=== PATIENT | female | born 1975 | race Two or more races ===

== ENCOUNTER 2024-02-04 20:17 | Inpatient (IN) | payer MEDICAID, SELFPAY ==
[2024-02-04 20:18] VITALS: BMI 30.2
--- NOTE | 2024-02-04 20:20 | EKG_ITS ---
[facility] Test Date: 2024-02-04 Pat Name: MARCELA VEGAS Department: Room: - Gender: Female [employer] Player: : 1975 Requested By: ED Temporary Provider Order Number: [id number] Reading MD: ED Temporary Provider Measurements Intervals [place] Rate: 70 P: 37 HI: 155 QRS: -18 QRSD: 91 T: 106 QT: 372 QTc: 403 Interpretive Statements SINUS RHYTHM LEFT VENTRICULAR HYPERTROPHY AND ST-T CHANGE [VOLTAGE CRITERIA PLUS ST/T ABNORMALITY] POSSIBLE ANTERIOR MYOCARDIAL INFARCTION , PROBABLY OLD [30 ms Q WAVE IN V3/V4, OR R < 0.2 mV IN V4] Compared to ECG 10/01/2023 00:19:31 Left ventricular hypertrophy now present ST (T wave) deviation now present Myocardial infarct finding still present /store/S0/[id number].pdf
[2024-02-04 20:29] VITALS: BP 163/92; PULSE 73; RESP 16; TEMP 37; O2SAT 98
--- NOTE | 2024-02-04 20:37 | XR_ITS ---
Examination: PA lateral chest 2 views Technique: Upright PA lateral chest 2 views Exam date and time: February 04, [id number] hrs. Comparison June 15, 2022 Indications: Chest pain today. Findings: Normal heart size Lungs are clear. The osseous structures are intact Impression: No active disease
--- NOTE | 2024-02-04 20:37 | PD.EDRME ---
Rapid Medical Screening Exam RME Arrival date/time: 02/04/24 20:17 48-year-old female presents emergency department complaining of left-sided chest pain that radiates to her neck and left arm and it started 2 hours ago. Chief Complaint: Chest Pain Time Seen by Provider: 02/04/24 20:33 Vital signs: Vital Signs Temperature 98.6 F 02/04/24 20:29 Pulse Rate 73 02/04/24 20:29 Respiratory Rate 16 02/04/24 20:29 Blood Pressure 163/92 H 02/04/24 20:29 Pulse Oximetry (%) 98 02/04/24 20:29 Oxygen Delivery Method Room Air 02/04/24 20:29 Vital signs reviewed by provider: Yes
[2024-02-04 21:45] LABS: Basophils % (Auto) 0 % (0-2.5); Eosinophils # (Auto) 0.1 Thou/mm3 (0.0-0.5); Eosinophils % (Auto) 2 % (0-10); Hematocrit 40.2 % (36.0-46.0); Immature Granulocytes % (Auto) 0 % (0-0); Immature Granulocytes Auto 0.02 Thou/mm3 (0.00-0.00); Lymphocytes # (Auto) 2.3 Thou/mm3 (1.0-4.8); Lymphocytes % (Auto) 32 % (10-50); Mean Corpuscular HGB Conc 32.3 g/dl (31.0-37.0); Mean Corpuscular Volume 87 fL (80-100); Monocytes # (Auto) 0.5 Thou/mm3 (0.0-0.8); Monocytes % (Auto) 7 % (0-12); Neutrophils # (Auto) 4.2 Thou/mm3 (1.8-7.7); Neutrophils % (Auto) 59 % (37-80); Nucleated Red Blood Cell % 0 /100 WBC (0); Platelet Count 235 Thou/mm3 (140-440); RDW Standard Deviation 40.4 fL (36.4-46.3); Red Blood Count 4.65 Miln/mm3 (4.00-5.20); White Blood Count 7.1 Thou/mm3 (3.6-11.0)
[2024-02-04 21:49] LABS: Collection Type, Urine Clean Catch
[2024-02-04 21:55] LABS: Partial Thromboplastin Time 25.2 Seconds (22.0-36.0); Prothrombin Time 10.9 Seconds (9.0-12.2)
[2024-02-04 21:57] LABS: Bilirubin,Urine Negative (Negative); Blood,Urine Negative (Negative); Clarity,Urine Clear (Clear/Hazy); Color,Urine Lt-Yellow (Lt Yel-Yel); Glucose, Urine Negative (Negative); Ketones,Urine Negative (Negative); Leukocyte Esterase,Urine Positive (Negative); Nitrite,Urine Negative (Negative); PH,Urine 6.5 (5.0-7.0); Protein,Urine Negative (Neg - Trace); RBC,Urine 5 /hpf (0-3); Specific Gravity,Urine 1.027 (1.001-1.035); Squamous Epithelial Cell,Urine 1 /hpf (0-5); Urobilinogen,Urine Negative mg/dL (0.0-1.0); WBC,Urine 6 /hpf (0-5)
[2024-02-04 21:57] LABS: B-Type Natriuretic Peptide < 20 pg/mL (0-100)
[2024-02-04 22:02] LABS: Amphetamine/Methamp Scrn,U Positive (Negative); Barbiturate Screen,Urine Negative (Negative); Benzodiazepines Screen,Urine Negative (Negative); Benzoylecgonine Screen, Ur Negative (Negative); Fentanyl Screen,Urine Negative (Negative); Opiate Screen,Urine Negative (Negative); THC Screen,Urine Negative (Negative)
--- NOTE | 2024-02-04 22:03 | PD.EDRME ---
Rapid Medical Screening Exam RME Arrival date/time: 02/04/24 20:17 02/04/24 20:17 48-year-old female presents emergency department complaining of left-sided chest pain that radiates to her neck and left arm and it started 2 hours ago. Chief Complaint: Chest Pain Time Seen by Provider: 02/04/24 20:33 Vital signs: Vital Signs Temperature 98.6 F 02/04/24 20:29 Pulse Rate 73 02/04/24 20:29 Respiratory Rate 16 02/04/24 20:29 Blood Pressure 163/92 H 02/04/24 20:29 Pulse Oximetry (%) 98 02/04/24 20:29 Oxygen Delivery Method Room Air 02/04/24 20:29 RME Narrative: 02/04/24 20:17 48-year-old female presents emergency department complaining of left-sided chest pain that radiates to her neck and left arm and it started 2 hours ago.
[2024-02-04 22:07] LABS: Anion Gap 7 (7-16); Blood Urea Nitrogen 11 mg/dL (9-23); Carbon Dioxide 27.8 mMol/L (20.0-31.0); Chloride 105 mMol/L (98-107); Creatinine (Component) 0.9 mg/dL (0.6-1.3); Potassium 4.5 mMol/L (3.4-5.1); Sodium 140 mMol/L (136-145)
[2024-02-04 22:08] LABS: Alanine Aminotransferase 11 U/L (10-49); Albumin, Serum 4.5 gm/dL (3.5-5.0); Albumin/Globulin Ratio 1.7 (1.2-2.2); Alkaline Phosphatase 130 U/L (46-116); Aspartate Amino Transferase 33 U/L (0-34); BUN/Creatinine Ratio 12 Ratio (12-20); Bilirubin,Total 0.3 mg/dL (0.3-1.2); Calcium 9.3 mg/dL (8.3-10.6); Calcium (Corrected) 9.3 mg/dL (8.5-10.1); Estimated Creatinine Clearance 68.9 mL/min (>60); Globulin 2.6 gm/dL (2.3-3.5); Glucose 103 mg/dL (74-106); Magnesium 2.3 mg/dL (1.6-2.6); Osmolality,Calculated 278 (275-295); Total Protein 7.1 gm/dL (5.7-8.2); eGFR > 60 See Note
[2024-02-04 22:09] LABS: Troponin I 1.002 ng/mL (0.0-0.045)
[2024-02-05] VITALS (12 sets, daily range): BP systolic 105–140; BP diastolic 66–96; PULSE 61–83; RESP 16–24; TEMP 35.9–36.9; O2SAT 94–100; BMI 29.7
--- NOTE | 2024-02-05 01:13 | PD.EDCHEST ---
ED Chest Pain RME/HPI General Chief Complaint: Chest Pain Stated Complaint: CHEST PAIN Time Seen by Provider: 02/04/24 20:33 Source: patient Arrival date/time: 02/04/24 20:17 Mode of arrival: ambulatory Limitations: no limitations RME / HPI RME / HPI narrative: 02/04/24 20:17 48-year-old female presents emergency department complaining of left-sided chest pain that radiates to her neck and left arm and it started [address] MOORE MAIN ED EVALUATION: 48-year-old female presents to the ED with c/o chest pain. She notes pain as sharp sensation in the midsternal radiating up into her jaw. Patient states she usually has reflux like sensation in her chest but notes this episode was different. It occurred at about 4PM. Patient states she started to develop shortness of breath and worsening hcest pain therefore she decided to come here to be further evaluation. Denies any similar symptoms in the past. She denies orthopnea, or any other medical complaints. Related Data Home Medications ?Medication ?Instructions ?Recorded ?Confirmed omeprazole 20 mg tablet,delayed 20 mg PO QDAY 11/29/18 08/15/20 release Previous Rx's ?Medication ?Instructions ?Recorded diphenhydramine HCl 25 mg tablet 50 mg (2 x 25 mg) PO Q6H PRN 08/15/20 (Benadryl Allergy) allergic reaction #30 tabs ibuprofen 800 mg tablet 800 mg PO TID PRN pain #30 tabs 06/01/22 ondansetron 4 mg disintegrating 4 mg PO Q8H PRN nausea and 06/15/22 tablet vomiting #15 tabs acetaminophen 500 mg tablet 1,000 mg (2 x 500 mg) PO Q6H PRN 10/01/23 (Tylenol Extra Strength) pain #60 tabs famotidine 40 mg tablet (Pepcid) 40 mg PO QDAY #30 tabs 10/01/23 ibuprofen 600 mg tablet 600 mg PO Q6H PRN pain #30 tabs 10/01/23 metoclopramide HCl 10 mg tablet 10 mg PO Q6H PRN nausea and 10/01/23 (Reglan) vomiting #15 tabs Allergies Allergy/AdvReac Type Severity Reaction Status Date / Time No Known Allergies Allergy Verified 02/04/24 20:19 Review of Systems Review of Systems Systems Reviewed: All systems reviewed, normal except as documented Past Medical History Past Medical History CARDIAC: Negative Congestive Heart Failure RESPIRATORY: Negative Chronic Obstructive Pulmonary Disease (COPD) GASTROINTESTINAL: Positive Gastrointestinal Disorders, Pancreatitis and Gastroesophageal Reflux Disease GENITOURINARY: Positive Genitourinary Disorders and Kidney Stones; Negative Renal Disease ENDOCRINE: Negative Diabetes Mellitus Type 1 or Diabetes Mellitus Type 2 PSYCHO/SOCIAL: Positive Recreational Drug Use Family History FAMILY HISTORY: Positive Family Cancer Social History SMOKING STATUS: Current every day smoker SUBSTANCE USE: does not use ED Exam Narrative Physical exam: GENERAL APPEARANCE: alert and oriented x 4, well-developed, well-nourished, no acute distress VITALS: All vitals were reviewed and the pulse ox is 100% on room air, which is normal according to my interpretation. HEENT: Normocephalic, atraumatic; pupils equal, round, reactive to light; EOMI; mucous membranes pink, moist; oropharynx clear NECK: Supple LUNGS: CTABL; no wheezes, no rales, no rhonchi HEART: Regular rate, regular rhythm; normal S1, S2; no murmurs ABDOMEN: non distended; normal BS; soft, no tenderness, no guarding, no rebound; no masses, no organomegaly, no hernia BACK: no CVA tenderness EXTREMITIES: atraumatic; no edema NEUROLOGIC: awake; alert and oriented x4; cranial nerves II-XII grossly intact; no focal sensory or motor deficits PSYCHIATRIC: appropriate mood and affect SKIN: warm, dry, normal color; no rashes General Limitations: Present no limitations Course Course Course Narrative: CXR is ordered for determining etiology of chest pain . Quality Measures none Orders Category Date Time Status EKG (ED ONLY) *Do not use* NOW Care 02/04/24 20:20 Completed EKG (ED ONLY) *Do not use* NOW Care 02/05/24 01:14 Completed EKG (ED Only) Stat Exams 02/04/24 20:20 Draft EKG (ED Only) Stat Exams 02/05/24 01:14 Ordered XR chest 2V Stat Exams 02/04/24 20:37 Completed B-Type Natriuretic Peptide Stat Lab 02/04/24 21:15 Completed CBC Stat Lab 02/04/24 21:15 Completed Comprehensive Metabolic Panel Stat Lab 02/04/24 21:15 Completed Drug Screen,Urine Stat Lab 02/04/24 21:35 Completed Magnesium Stat Lab 02/04/24 21:15 Completed PT [Prothrombin Time with INR] Stat Lab 02/05/24 01:58 Completed Partial Thromboplastin Time Stat Lab 02/04/24 21:15 Completed Partial Thromboplastin Time Stat Lab 02/05/24 07:45 Ordered Prothrombin Time with INR Stat Lab 02/04/24 21:15 Completed Troponin I Stat Lab 02/04/24 21:15 Completed Troponin I Stat Lab 02/05/24 00:36 Completed Urinalysis Stat Lab 02/04/24 21:35 Completed Aspirin Chew Med 02/05/24 01:17 Discontinued 324 mg PO X1 ONE Heparin Inj Med 02/05/24 01:18 Discontinued 4,000 unit IV X1 ONE Heparin/D5w 25K 250 ML Ivpb [Heparin in D5w Ivpb] Med 02/05/24 01:30 Active 25,000 unit in 250 ml IV 12 units/kg/hr Vital Signs Vital signs: Vital Signs Temperature 98.6 F 02/04/24 20:29 Pulse Rate 73 02/04/24 20:29 Respiratory Rate 16 02/04/24 20:29 Blood Pressure 163/92 H 02/04/24 20:29 Pulse Oximetry (%) 98 02/04/24 20:29 Oxygen Delivery Method Room Air 02/04/24 20:29 Chest Pain MDM Narrative MDM Narrative:: Scribe Attestation: IDanuta am scribing for and in the presence of Dr. Moore. Provider Notation: Although this document has been carefully reviewed, there may still be some phonetic and other typographical errors. These errors are purely grammatical due to imperfections in the software program and should not be construed in any way to compromise the substance of the patient's medical care during this visit. Patient data External records reviewed:: [facility] previous records Clinical information provided by:: patient Social determinants that could affect healthcare access:: substance use Patient has the following chronic illnesses:: gastritis/GERD, substance use disorder (methamphetamine and opioid) How is presenting disease/condition affected by chronic disease/condition?: uneffected by Evaluation data The following diagnostics were reviewed and interpreted by me:: lab results, radiology exam(s) and EKG tracing(s) Lab and/or radiology exams considered but not ordered:: n/a Interpretation Summary: I personally reviewed the radiology data and agree with the radiologist's interpretation. Examination: PA lateral chest 2 views Technique: Upright PA lateral chest 2 views Exam date and time: February 04, [id number] hrs. Comparison June 15, 2022 Indications: Chest pain today. Findings: Normal heart size Lungs are clear. The osseous structures are intact Impression: No active disease Dictated By: Chase Black MD Medications / Prescriptions Medications or Prescriptions considered but not ordered:: n/a Medication administrations:: Medication Administration History Acetaminophen (Acetaminophen 325 Mg Tablet) 650 mg PO Q6H PRN PRN Reason: PAIN SCALE 1-3 (mild Stop: 03/06/24 02:23 Aspirin (Aspirin Ec 81 Mg Tabec) 81 mg PO QDAY VIDA Stop: 03/06/24 08:59 Atorvastatin Calcium (Atorvastatin Calcium 10 Mg Tablet) 80 mg PO QDAY VIDA Stop: 03/06/24 08:59 Heparin Sodium/Dextrose (Heparin In D5w Ivpb) 25,000 unit in 250 mls @ 8.552 mls/hr IV .Q24H IVDA; Protocol Stop: 02/19/24 01:29 Last Admin: 02/05/24 01:41 Dose: 12 units/kg/hr, 8.552 mls/hr Documented By: YENI Co-signed By: PAULA Ondansetron HCl (Ondansetron Inj 2 Mg/Ml Inj 2 Ml) 4 mg IV Q6H PRN; Protocol PRN Reason: NAUSEA OR VOMITING Stop: 03/06/24 02:23 Sennosides (Senna Tablet) 1 tab PO QDAY PRN; Protocol PRN Reason: constipation Stop: 03/06/24 02:23 Discontinued Medications Aspirin (Aspirin 81 Mg Chew) 324 mg PO X1 ONE Stop: 02/05/24 01:18 Last Admin: 02/05/24 01:25 Dose: 324 mg Documented By: YENI Atorvastatin Calcium (Atorvastatin Calcium 10 Mg Tablet) 40 mg PO QDAY [facility] Stop: 03/06/24 08:59 Heparin Sodium (Porcine) (Heparin Sod Inj 5000 Unit/Ml Vial) 4,000 unit IV X1 ONE; Protocol Stop: 02/05/24 01:19 Last Admin: 02/05/24 01:26 Dose: 4,000 unit Documented By: YENI Co-signed By: PAULA as above, if any Consultations Consultation(s) initiated? (list below): Yes Consultation #1 (Physician, Specialty, Details): Hospitalist made aware of the patient?s HPI, PMHx, lab and/or radiology results. Treatment plan was discussed. Will admit for further evaluation and management. Accepts patient for admission. Time: 01:30 Diagnosis Chest Pain Differential Diagnosis: fracture of rib, atypical chest pain, st elevation myocardial infarction, costochondritis, chest pain and biliary colic Most likely diagnosis given after review of the tests above:: Non-ST elevation NV (NSTEMI) Admission Indicated Admission indicated?: indicated Admission Request Was there a request for admission?: Yes Admission Attestation Admission request attestation: Discussed case with [] from Hospitalist service regarding admission. Discussed patients ED course, exam findings, labs, and radiology results. The Hospitalist [agrees,declines] to accept the patient for admission. Disposition Plan Disposition Plan: Admit Critical Care Time Critical Care Time Critical Care Time: Yes Total Critical Care Time (min.): 45 Attestation: The high probability of sudden, clinically significant deterioration in the patient?s condition required the highest level of my preparedness to intervene urgently. The services I provided to this patient were to treat and/or prevent clinically significant deterioration. Services included the following: chart data review, reviewing nursing notes and/or old charts, documentation time, business solutions consultant collaboration regarding findings and treatment options, medication orders and management, direct patient care, vital sign assessments and ordering, interpreting and reviewing diagnostic studies and lab tests. Aggregate critical care time includes only time during which I was engaged in work directly related to the patient?s care, as described above, whether at bedside or elsewhere in the Emergency Department. It did not include time spent performing other reported procedures or the services of residents, students, nurses or physician assistants. Discharge Plan Plan Patient Disposition: Admit Acute Care w/in Hospital Patient condition on transfer: Stable Problem List Clinical Impression: Non-ST elevation NV (NSTEMI)
--- NOTE | 2024-02-05 01:14 | EKG_ITS ---
[facility] Test Date: 2024-02-05 Pat Name: MARCELA VEGAS Department: Room: - Gender: Female Rol[employer] Tender: MARILU : 1975 Requested By: Guillermina Sykes Order Number: [id number] Reading MD: Guillermina Sykes Measurements Intervals [place] Rate: 66 P: 35 SD: 161 QRS: -11 QRSD: 96 T: 101 QT: 405 QTc: 427 Interpretive Statements SINUS RHYTHM POSSIBLE ANTERIOR MYOCARDIAL INFARCTION , PROBABLY OLD Compared to ECG 02/04/2024 20:28:19 Left ventricular hypertrophy no longer present ST (T wave) deviation no longer present Myocardial infarct finding still present /store/S0/[id number]/ecg/[id number].pdf
[2024-02-05] MEDS: ASPIRIN 81 MG CHEW 324 MG PO (01:25)
[2024-02-05] MEDS: HEPARIN SOD INJ 5000 UNIT/ML VIAL 4000 UNIT IV (01:26)
--- NOTE | 2024-02-05 01:30 | PC.NURSE ---
PT TO THE ER WITH C/O LEFT SIDED CHEST PAIN THAT STARTED 2 HR PRIOR TO ARRIVAL TO THE ER. PT STATES SHE WAS BATHING HER GROUND CHILD AND HAD A SUDDEN ONSET OF PERSISTENT CHEST PAIN AND RAD TO LEFT ARM. PT DENIES ANY OTHER SYMPTOMS. PT PRESENTED ER WITH PAIN LEVEL 3/10 AND DESCRIBES STABBING. PT PLACE ON TRANSPORTATION ANALYST. 20GRFA STARTED. AWAITING NEW MD ORDERS AT THIS TIME.
[2024-02-05] MEDS: Heparin/D5w 25K 250 ML Ivpb 25,000 UNIT/250 ML BAG 8.552 UNIT IV (01:41)
[2024-02-05 02:22] LABS: INR 1.1 (0.9-1.3); Prothrombin Time 11.6 Seconds (9.0-12.2)
--- NOTE | 2024-02-05 02:26 | ECHO_ITS ---
Transthoracic Echo Report Ht (in): 61 Wt (lb): 157 Exam Location: Portable Status: Emergency Boiler Shop Supervisor: Cris Moore Indications: Procedure Performed: BP: 130 / 91 HR: 80 Technical Quality: Technically difficult study MEASUREMENTS (Male / Female) Normal Values 2D ECHO LV Diastolic Diameter PLAX 4.6 cm 4.2 - 5.9 / 3.9 - 5.3 cm LV Systolic Diameter PLAX 3.0 cm IVS Diastolic Thickness 0.9 cm 0.6 - 1.0 / 0.6 - 0.9 cm LVPW Diastolic Thickness 0.8 cm 0.6 - 1.0 / 0.6 - 0.9 cm LV Relative Wall Thickness 0.4 LVOT Diameter 1.9 cm LA Volume Index 35.4 cm?/m? 16 - 28 cm?/m? Ascending Aorta Diameter 3.0 cm M-MODE Aortic Root Diameter MM 2.4 cm LA Systolic Diameter MM 4.2 cm LA Ao Ratio MM 1.8 AV Cusp Separation MM 1.9 cm DOPPLER AV Peak Velocity 115.0 cm/s AV Peak Gradient 5.3 mmHg AV Mean Gradient 3.0 mmHg AV Velocity Time Integral 24.0 cm LVOT Peak Velocity 75.8 cm/s LVOT Peak Gradient 2.3 mmHg LVOT Velocity Time Integral 16.4 cm LVOT Cardiac Index 2088.1 cm?/min?m? AV Area Cont Eq vti 1.9 cm? AV Area Cont Eq pk 1.9 cm? MV Peak Velocity 84.6 cm/s MV Peak Gradient 2.9 mmHg MV Mean Velocity 49.4 cm/s MV Mean Gradient 1.0 mmHg MV Area PHT 3.7 cm? MR Peak Velocity 224.0 cm/s MR Peak Gradient 20.1 mmHg Mitral E Point Velocity 65.5 cm/s Mitral A Point Velocity 65.5 cm/s Mitral E to A Ratio 1.0 LV E' Lateral Velocity 9.1 cm/s Mitral E to LV E' Lateral Ratio 7.2 LV E' Septal Velocity 5.2 cm/s Mitral E to LV E' Septal Ratio 12.5 TR Peak Velocity 233.7 cm/s TR Peak Gradient 21.8 mmHg FINDINGS Left Ventricle Normal left ventricular size, wall thickness, systolic function with no obvious regional wall motion abnormalities. The ejection fraction is visually estimated at 55-60%. Right Ventricle The right ventricle is normal in size and systolic function. The estimated right ventricular systoli c pressure, 31mmHg.RAP 5. Left Atrium The left atrium is mildly dilated. Right Atrium The right atrium is normal by two-dimensional imaging, color flow and Doppler imaging with no struct ural abnormalities, no thrombus formation present. Atrial Septum The interatrial septum appears normal with no evidence of a shunt. Aorta The aorta is normal by two-dimensional, color flow and Doppler interrogation. Mitral Valve The mitral valve is normal by two-dimensional, color flow and Doppler interrogation. There is mild mitral valve regurgitation. Aortic Valve The aortic valve is trileaflet and normal by two-dimensional, color flow and Doppler interrogation. There is no significant aortic valve regurgitation. Tricuspid Valve The tricuspid valve is normal by two-dimensional, color flow and Doppler interrogation. There is mil d tricuspid valve regurgitation. Pulmonic Valve There is no significant pulmonic valve regurgitation. Vessels The pulmonary artery appears normal. The inferior vena cava pulmonary and hepatic veins appear janneth l. Pericardium The pericardium is normal by two-dimensional imaging. There is no significant pericardial effusion. CONCLUSIONS Indication: NSTEMI Normal LV size and function. Grade I diastolic dysfunction. Estimated EF 55-60% Normal RV size and function. Mild LA dilatation. Mild MR, TR. Leo Garvey (Electronically Signed) Final Date: 05 February 2024 23:51
--- NOTE | 2024-02-05 02:36 | PD.RESHP ---
Documentation for date of: 02/05/24 HPI History of Present Illness Chief complaint: Chest Pain History of present illness: 48-year-old female with past medical history of gastritis/GERD, substance use disorder (methamphetamine and opioid), nephrolithiasis, cholelithiasis presenting to the ED on 02/03 with chest pain which she describes as a sharp sensation in the middle of her chest which radiated up into her jaw. Patient states that she usually gets some reflux like sensation in her chest; however, the pain that she experienced this afternoon around 4 PM was different. Patient states that she was in the process of taking her grandchild to the bathroom when she started to develop shortness of breath along with sharp chest pain in the middle of her chest which radiated up to her jaw. Patient states that the sensation felt like sore throat but worsening progressively. Patient denies having any similar episodes in the past; however, she does state that she gets some palpitations and some numbness in her hands from time to time. Patient denies other concerning cardiac symptoms such as orthopnea, paroxysmal nocturnal dyspnea. Patient also apparently goes to [facility]; however, has not been in several months and she has not been diagnosed with hypertension or diabetes in the past. Medical history: As listed Surgical history: Denies any surgery at this time Allergies: NKDA Medications: Omeprazole for GERD/gastritis Family history: Patient's mother had a quadruple bypass in her 50s, patient's grandmother maternal side had 3 stents placed both family members have Social history: Patient is a caregiver, lives with her , Codey, and 1 daughter and 1 grandchild. Patient has [id number] history, uses meth (U-Tox positive currently), denies alcohol use ROS: All 12 systems assessed and the patient denies unless otherwise stated in HPI. In the ED, patient presented with blood pressure 163/92, heart rate 73, respiratory rate 16, afebrile satting 98 on room air. Pertinent lab findings included mildly elevated alkaline phosphatase 130, troponin was initially elevated at 1.002 and repeat troponin came back at 8.870, BNP less than 20, urinalysis with no signs of urinary tract infection, U tox positive for amphetamine. EKG was normal sinus rhythm with possible left axis deviation but no concerning ST changes noted and chest x-ray was negative for any acute disease process. Patient will be admitted for NSTEMI type I with elevated troponins; started on heparin drip and cardiology has been consulted. Exam Vital Signs Temp Pulse Resp BP Pulse Ox O2 Del Method 98.0 F 78 17 123/66 98 Room Air 02/05/24 01:18 02/05/24 01:18 02/05/24 01:18 02/05/24 01:18 02/05/24 01:18 02/05/24 01:18 Narrative Exam Physical Exam: GENERAL: Awake, tearful (wants to go home not to miss work/be with grandchildren), answering questions appropriately, appears older than stated age HEENT: NC/AT. Moist mucosa. PERRLA/EOMI. CARDIO: Heart RRR, no obvious murmurs, no JVD. PULM: No coughing or visible SOB. Lungs CTA B/L. GI: Abdomen soft, NT/ND, +BS. SKIN/MSK/EXT: No wounds/discoloration/rashes/edema/amputations. +Pedal pulses present B/L. NEURO: Oriented x3, Moves extremities x4, no focal neurological deficits noted. Results: Labs 02/05/24 05:19 02/04/24 21:15 Labs: Short CBC 02/04/24 Range/Units 21:15 WBC 7.1 (3.6-11.0) Thou/mm3 Hgb 13.0 (12.0-16.0) g/dL Hct 40.2 (36.0-46.0) % Plt Count 235 (140-440) Thou/mm3 BMP 02/04/24 21:15 Sodium 140 Potassium 4.5 Chloride 105 Carbon Dioxide 27.8 BUN 11 Creatinine 0.9 Glucose 103 Calcium 9.3 Cardiac Enzymes 02/04/24 02/05/24 Range/Units 21:15 00:36 Troponin I 1.002 H* 8.870 H* D (0.0-0.045) ng/mL Liver Function 02/04/24 Range/Units 21:15 Total Bilirubin 0.3 (0.3-1.2) mg/dL AST 33 (0-34) U/L ALT 11 (10-49) U/L Alkaline Phosphatase 130 H (46-116) U/L Albumin 4.5 (3.5-5.0) gm/dL Urine 02/04/24 Range/Units 21:35 Urine Color Lt-Yellow (Lt Yel-Yel) Urine Clarity Clear (Clear/Hazy) Urine pH 6.5 (5.0-7.0) Ur Specific [place] 1.027 (1.001-1.035) Urine Protein Negative (Neg - Trace) Urine Glucose (UA) Negative (Negative) Quality Measures Quality Measures none Medications Home Medications and Allergies Home Medications ?Medication ?Instructions ?Recorded ?Confirmed ?Type omeprazole 20 mg tablet,delayed 20 mg PO QDAY 11/29/18 08/15/20 History release Allergies Allergy/AdvReac Type Severity Reaction Status Date / Time No Known Allergies Allergy Verified 02/04/24 20:19 Visit Medications Acetaminophen (Acetaminophen 325 Mg Tablet) 650 mg PO Q6H PRN PRN Reason: PAIN SCALE 1-3 (mild Stop: 03/06/24 02:23 Aspirin (Aspirin Ec 81 Mg Tabec) 81 mg PO QDAY [facility] Stop: 03/06/24 08:59 Atorvastatin Calcium (Atorvastatin Calcium 10 Mg Tablet) 80 mg PO QDAY [facility] Stop: 03/06/24 08:59 Heparin Sodium/Dextrose (Heparin In D5w Ivpb) 25,000 unit in 250 mls @ 8.552 mls/hr IV .Q24H VIDA; Protocol Stop: 02/19/24 01:29 Last Admin: 02/05/24 01:41 Dose: 12 units/kg/hr, 8.552 mls/hr Ondansetron HCl (Ondansetron Inj 2 Mg/Ml Inj 2 Ml) 4 mg IV Q6H PRN; Protocol PRN Reason: NAUSEA OR VOMITING Stop: 03/06/24 02:23 Sennosides (Senna Tablet) 1 tab PO QDAY PRN; Protocol PRN Reason: constipation Stop: 03/06/24 02:23 Discontinued Medications Aspirin (Aspirin 81 Mg Chew) 324 mg PO X1 ONE Stop: 02/05/24 01:18 Last Admin: 02/05/24 01:25 Dose: 324 mg Atorvastatin Calcium (Atorvastatin Calcium 10 Mg Tablet) 40 mg PO QDAY [facility] Stop: 03/06/24 08:59 Heparin Sodium (Porcine) (Heparin Sod Inj 5000 Unit/Ml Vial) 4,000 unit IV X1 ONE; Protocol Stop: 02/05/24 01:19 Last Admin: 02/05/24 01:26 Dose: 4,000 unit Assessment & Plan Plan 48-year-old female with past medical history of gastritis/GERD, substance use disorder (methamphetamine and opioid), nephrolithiasis, cholelithiasis presenting with chest pain which she describes as a sharp sensation in the middle of her chest which radiated up into her jaw will be admitted for NSTEMI type I with elevated troponins; started on heparin drip and cardiology has been consulted. #NSTEMI type I #Elevated troponins #Acute coronary syndrome Patient presenting with typical chest pain symptoms; central chest pain radiating to the left and up to her jaw associated with shortness of breath Patient has significant family history of coronary artery disease; mother with quadruple bypass in her 50s, grandmother with 3 stents placed Patient is an active smoker, with [id number]-rfpu history Patient likely has undiagnosed hypertension; current blood pressure within normal limits Preliminary ASCVD score is showing 3.0% Risk of cardiovascular event (coronary or stroke or non-fatal [place] or stroke) in next 10 years. In the ED, EKG showed normal sinus rhythm with left axis deviation but no concerning ST changes Troponins initially elevated 1.002 => 8.070 Patient given aspirin loading dose in the ED Plan: Dr. Worthy, cardiology consulted appreciate recommendations Trending troponin q6h Patient started on heparin drip Aspirin 81 mg daily and atorvastatin 80 mg Echo ordered Follow-up on lipid panel, TSH, A1c Keep potassium greater than 4 and magnesium greater than 2 Oxygen as needed Consider starting beta-luci; however, patient's heart rate in the 70s and currently not complaining of active chest pain #Meth use disorder Patient actively uses methamphetamine; U-Tox positive Plan: Counseled patient on drug cessation Consider elementary school social worker #Gastritis/GERD Patient on home omeprazole 40 mg in the a.m. Plan: Will start patient on Protonix 40 mg per formulary Hospital Management: Lines: PIV Bowel: Senna Diet: Cardiac GI prophylaxis: Protonix as above DVT prophylaxis: On heparin drip Dispo: Telemetry; cardiology consulted for NSTEMI type II on heparin drip Code: Full Patient seen and assessed with attending Dr. Inman and senior resident Dr. Humble Daly, PGY-1 Attending Provider Attestation/Addendum 48-year-old female was seen and evaluated in ER bed #6. The patient presented with chest pain. She has elevated troponin. EKG shows sinus rhythm with possible anterior NC. Chest x-ray showed no CHF no effusion. The patient is alert and oriented. And I saw she is chest pain-free. She has stable vital signs. No arrhythmias recorded. The patient was started on heparin drip.
[2024-02-05 05:39] LABS: Basophils % (Auto) 1 % (0-2.5); Eosinophils # (Auto) 0.2 Thou/mm3 (0.0-0.5); Eosinophils % (Auto) 3 % (0-10); Hematocrit 37.5 % (36.0-46.0); Hemoglobin 12.1 g/dL (12.0-16.0); Immature Granulocytes % (Auto) 0 % (0-0); Immature Granulocytes Auto 0.01 Thou/mm3 (0.00-0.00); Lymphocytes # (Auto) 3.2 Thou/mm3 (1.0-4.8); Lymphocytes % (Auto) 40 % (10-50); Mean Corpuscular HGB Conc 32.3 g/dl (31.0-37.0); Mean Corpuscular Hemoglobin 27.9 pg (25.0-35.0); Mean Corpuscular Volume 86 fL (80-100); Monocytes # (Auto) 0.4 Thou/mm3 (0.0-0.8); Monocytes % (Auto) 6 % (0-12); Neutrophils # (Auto) 4.1 Thou/mm3 (1.8-7.7); Neutrophils % (Auto) 52 % (37-80); Nucleated Red Blood Cell % 0 /100 WBC (0); Platelet Count 214 Thou/mm3 (140-440); RDW Standard Deviation 39.9 fL (36.4-46.3); Red Blood Count 4.34 Miln/mm3 (4.00-5.20)
[2024-02-05 06:54] LABS: Glucose Estimated Average 97 mg/dL (80-131)
[2024-02-05 07:09] LABS: Alanine Aminotransferase 11 U/L (10-49); Albumin, Serum 4.1 gm/dL (3.5-5.0); Albumin/Globulin Ratio 1.8 (1.2-2.2); Alkaline Phosphatase 116 U/L (46-116); Anion Gap 7 (7-16); Aspartate Amino Transferase 67 U/L (0-34); BUN/Creatinine Ratio 17 Ratio (12-20); Bilirubin,Total 0.3 mg/dL (0.3-1.2); Blood Urea Nitrogen 12 mg/dL (9-23); Carbon Dioxide 27.1 mMol/L (20.0-31.0); Cardiac Risk Estimate 3.2 RATIO (3.7-5.6); Chloride 106 mMol/L (98-107); Cholesterol 177 mg/dL (132-200); Creatinine (Component) 0.7 mg/dL (0.6-1.3); Estimated Creatinine Clearance 87.8 mL/min (>60); Globulin 2.3 gm/dL (2.3-3.5); Glucose 97 mg/dL (74-106); HDL Cholesterol 56 mg/dL (40-60); LDL Cholesterol,Calculated 110 mg/dL (0-130); Magnesium 2.3 mg/dL (1.6-2.6); Osmolality,Calculated 279 (275-295); Phosphorous 3.4 mg/dL (2.4-5.1); Potassium 3.7 mMol/L (3.4-5.1); Sodium 140 mMol/L (136-145); Thyroid Stimulating Hormone 0.38 uIU/mL (0.55-4.78); Total Protein 6.4 gm/dL (5.7-8.2); Triglycerides 53 mg/dL (30-150); eGFR > 60 See Note
[2024-02-05 07:22] LABS: Troponin I 10.293 ng/mL (0.0-0.045)
[2024-02-05] MEDS: ATORVASTATIN CALCIUM 10 MG TABLET 80 MG PO (08:35)
[2024-02-05] MEDS: PANTOPRAZOLE 40 MG TABLET PO (08:36)
--- NOTE | 2024-02-05 09:35 | ESPR_ITS ---
<Statement entered by Jim Sullivan MD - 02/10/24 12:44> I reviewed above note and agree with findings and plans. I have also personally examined the patient with medicine team and went over assessment and plan with medical team including music industry internship and resident physician. <Statement entered by Terra Camara MD - 02/05/24 18:43> Patient was seen and examined at bedside. And agree on the assessment and plan of this patient. - Patient's plan and care discussed with my attending, Dr. Nate Camara MD Internal Medicine PGY-2 Documentation for date of: 02/05/24 Subjective Subjective Interval history: Pt examined at bedside today. Says she is experiencing some chest pain, rated 2/10, but it was initially at 10/10 upon coming in. Describes chest pain as pressure and something sitting on her chest. Denies diaprohresis, NV, SOB. Has never had these symptoms before. No other complaints at this time. Exam Vital Signs Temp Pulse Resp BP Pulse Ox O2 Del Method 96.7 F L 70 24 H 131/86 H 95 Room Air 02/05/24 08:00 02/05/24 08:00 02/05/24 08:00 02/05/24 08:00 02/05/24 08:00 02/05/24 08:00 Narrative Exam General: AAOx3, NAD, a bit sleepy HEENT: Moist mucous membranes, conjunctiva clear, EOMI, PERRLA, Cardiovascular: S1, S2, radial pulses +2 bilat, RRR, chest not TTP Pulmonary: CTAB bilat no cough, no wheezing GI: No tenderness to light or deep palpitation, no guarding, rigidity, rebound tenderness or distension Extremities: No presence of trace or pitting edema in lower extremities bilaterally, dorsalis pedis pulses +2 bilaterally Neuro: AAOx3, no focal motor or sensory deficits in the UE or LE bilat Psych: Good judgement, thought and behavior. Cooperative Objective Labs 02/05/24 05:19 02/05/24 05:19 Labs: Laboratory Results - last 24 hr 02/04/24 02/04/24 02/05/24 21:15 21:35 00:36 WBC 7.1 RBC 4.65 Hgb 13.0 Hct 40.2 MCV 87 MCH 28.0 MCHC 32.3 RDW Std Deviation 40.4 Plt Count 235 Neut % (Auto) 59 Lymph % (Auto) 32 [place] % (Auto) 7 Eos % (Auto) 2 Baso % (Auto) 0 Neut # (Auto) 4.2 Lymph # (Auto) 2.3 [place] # (Auto) 0.5 Eos # (Auto) 0.1 Baso # (Auto) 0.0 Immature Gran # (Auto) 0.02 H Absolute Nucleated RBC 0.00 Immature Gran % 0 Nucleated RBC % 0 PT 10.9 INR 1.0 APTT 25.2 Sodium 140 Potassium 4.5 Chloride 105 Carbon Dioxide 27.8 Anion Gap 7 BUN 11 Creatinine 0.9 Estim Creat Clear Calc 68.9 eGFR > 60 BUN/Creatinine Ratio [address] Glu mg/dL Hemoglobin A1c Calculated Osmolality 278 Calcium 9.3 Corrected Calcium 9.3 Phosphorus Magnesium 2.3 Total Bilirubin 0.3 AST 33 ALT 11 Alkaline Phosphatase 130 H Troponin I 1.002 H* 8.870 H* D B-Natriuretic Peptide < 20 Total Protein 7.1 Albumin 4.5 Globulin 2.6 Albumin/Globulin Ratio 1.7 Triglycerides Cholesterol LDL Cholesterol, Calc HDL Cholesterol Cholesterol/HDL Ratio TSH Ur Collection Type Clean Catch Urine Color Lt-Yellow Urine Clarity Clear Urine pH 6.5 Ur Specific [place] 1.027 Urine Protein Negative Urine Glucose (UA) Negative Urine Ketones Negative Urine Blood Negative Urine Nitrite Negative Urine Bilirubin Negative Urine Urobilinogen (Auto) Negative Ur Leukocyte Esterase Positive Urine RBC 5 H Urine WBC 6 H Ur Squamous Epith Cells 1 Urine Bacteria None Urine Opiates Screen Negative Urine Fentanyl Screen Negative Ur Barbiturates Screen Negative U Amphetamin/Meth Scrn Positive A U Benzodiazepines Scrn Negative U Cocaine Metab Screen Negative U Marijuana (THC) Screen Negative 02/05/24 02/05/24 01:58 05:19 WBC 8.0 RBC 4.34 Hgb 12.1 Hct 37.5 MCV 86 MCH 27.9 MCHC 32.3 RDW Std Deviation 39.9 Plt Count 214 Neut % (Auto) 52 Lymph % (Auto) 40 [place] % (Auto) 6 Eos % (Auto) 3 Baso % (Auto) 1 Neut # (Auto) 4.1 Lymph # (Auto) 3.2 [place] # (Auto) 0.4 Eos # (Auto) 0.2 Baso # (Auto) 0.0 Immature Gran # (Auto) 0.01 H Absolute Nucleated RBC 0.00 Immature Gran % 0 Nucleated RBC % 0 PT 11.6 INR 1.1 APTT Sodium 140 Potassium 3.7 D Chloride 106 Carbon Dioxide 27.1 Anion Gap 7 BUN 12 Creatinine 0.7 Estim Creat Clear Calc 87.8 eGFR > 60 BUN/Creatinine Ratio [address] Glu mg/dL 97 Hemoglobin A1c 5.0 Calculated Osmolality 279 Calcium 9.0 Corrected Calcium 9.0 Phosphorus 3.4 Magnesium 2.3 Total Bilirubin 0.3 AST 67 H ALT 11 Alkaline Phosphatase 116 Troponin I 10.293 H* D B-Natriuretic Peptide Total Protein 6.4 Albumin 4.1 Globulin 2.3 Albumin/Globulin Ratio 1.8 Triglycerides 53 Cholesterol 177 LDL Cholesterol, Calc 110 HDL Cholesterol 56 Cholesterol/HDL Ratio 3.2 L TSH 0.38 L Ur Collection Type Urine Color Urine Clarity Urine pH Ur Specific [place] Urine Protein Urine Glucose (UA) Urine Ketones Urine Blood Urine Nitrite Urine Bilirubin Urine Urobilinogen (Auto) Ur Leukocyte Esterase Urine RBC Urine WBC Ur Squamous Epith Cells Urine Bacteria Urine Opiates Screen Urine Fentanyl Screen Ur Barbiturates Screen U Amphetamin/Meth Scrn U Benzodiazepines Scrn U Cocaine Metab Screen U Marijuana (THC) Screen Quality Measures Quality Measures none Assessment & Plan Assessment Current Active Medications: Generic Name Dose Route Start Last Admin Trade Name Freq PRN Reason Stop Dose Admin Acetaminophen 650 mg 02/05/24 02:24 Acetaminophen 325 Mg Tablet PO 03/06/24 02:23 Q6H PRN PAIN SCALE 1-3 (mild Aspirin 81 mg 02/05/24 09:00 02/05/24 08:33 Aspirin Ec 81 Mg Tabec PO 03/06/24 08:59 Not Given QDAY VIDA Atorvastatin Calcium 80 mg 02/05/24 09:00 02/05/24 08:35 Atorvastatin Calcium 10 Mg Tablet PO 03/06/24 08:59 80 mg QDAY VIDA Administration Heparin Sodium/Dextrose 25,000 unit in 250 mls @ 8.552 mls/hr 02/05/24 01:30 02/05/24 01:41 Heparin In D5w Ivpb IV 02/19/24 01:29 12 units/kg/hr .Q24H VIDA 8.552 mls/hr Administration Protocol 12 UNITS/KG/HR Ondansetron HCl 4 mg 02/05/24 02:24 Ondansetron Inj 2 Mg/Ml Inj 2 Ml IV 03/06/24 02:23 Q6H PRN NAUSEA OR VOMITING Protocol Pantoprazole Sodium 40 mg 02/05/24 09:00 02/05/24 08:36 Pantoprazole 40 Mg Tablet PO 03/06/24 08:59 40 mg QDAY VIDA Administration Sennosides 1 tab 02/05/24 02:24 Senna Tablet PO 03/06/24 02:23 QDAY PRN constipation Protocol Plan Assessment: 48-year-old female with past medical history of gastritis/GERD, substance use disorder (methamphetamine and opioid), nephrolithiasis, cholelithiasis presenting with chest pain which she describes as a sharp sensation in the middle of her chest which radiated up into her jaw will be admitted for NSTEMI type I with elevated troponins; started on heparin drip and cardiology has been consulted. #NSTEMI type I #Elevated troponins Patient presenting with typical chest pain symptoms; central chest pain radiating to the left and up to her jaw associated with shortness of breath Patient has significant family history of coronary artery disease; mother with quadruple bypass in her 50s, grandmother with 3 stents placed Patient is an active smoker, with 28-vxtg-bpqb history Patient likely has undiagnosed hypertension; current blood pressure within normal limits Preliminary ASCVD score is showing 3.0% Risk of cardiovascular event (coronary or stroke or non-fatal [place] or stroke) in next 10 years. In the ED, EKG showed normal sinus rhythm with left axis deviation but no concerning ST changes Characteristic chest pain/pressure in addition to risk factors Troponins initially elevated 1.002 => 8.070 --> ~10 -----> 8 S/p 325 ASA, Lipitor 80 Pt denies taking meth or any drugs, but Utox shows meth Pt is not reporting severe chest pain at this time, and has improved with medicines and anticoagulation Cholesterol numbers unremarkable A1c ~5.0 Chest CTA shows no dissection, or aneurysm Pt will need eventual cardiac cath Plan: Dr. Worthy, cardiology consulted appreciate recommendations Trending troponin q6h Continue heparin drip Aspirin 81 mg daily and atorvastatin 80 mg Echo ordered Keep potassium greater than 4 and magnesium greater than 2 Oxygen as needed Continue Metoprolol 12.5 #Meth use disorder Patient actively uses methamphetamine; U-Tox positive Plan: Counseled patient on drug cessation Consider director of social media marketing #Low TSH DDx: Reactive vs subclinical TSH 0.38 T4 0.93 Could be reactive or subclinical Plan: -Will need to follow up outpatient #Gastritis/GERD Patient on home omeprazole 40 mg in the a.m. Plan: Will start patient on Protonix 40 mg per formulary #Health Maintenance Disposition: Telemetry, NSTEMI for Type I DVT prophylaxis: Heparin GI prophylaxis: Protonix Diet: Cardiac CODE STATUS: Full Patient seen and care discussed with my senior resident, Dr. Camara , and my attending physician, Dr. Nate Aly, PGY-1
--- NOTE | 2024-02-05 09:58 | XR_ITS ---
Examination: CTA chest with intravenous contrast 2-D reconstructions 3-D reconstructions, vascular Date and time of exam: February 05, 2024 1146 hours INDICATIONS:NSTEMI, onset chest pain today clinical diagnosis aortic dissection CTDI: vol (mGy) 19.6 DLP: (mGycm) 485 Technique: Multiple axial sections of the thorax have been obtained. 3 mm slice thickness, from below the hemidiaphragms to above the apices of the lungs. Mediastinal and lung density settings have been obtained. 2-D sagittal and coronal reconstructions. 3-D angiographic renderings, 3-D volume renderings, 3D post processing, vascular maximum intensity projections obtained. Contrast administered is 100 cc [id number]. Low dose protocols were performed. One or more of the following dose reduction techniques were used; automated exposure control, adjustment of the mA and/or KV according to patient size, use of iterative reconstruction technique. Findings: No thoracic aortic aneurysm dilatation or dissection No pulmonary artery emboli No paratracheal tracheobronchial or bronchopulmonary adenopathy No pneumonia or pulmonary edema or pleural disease No visualized liver or splenic lesion No gallstones No pancreatic mass Kidneys partially visualized no hydronephrosis Moderate thoracic spondylosis IMPRESSION: No thoracic aortic aneurysm dilatation or dissection Negative for pulmonary artery emboli No pneumonia, pulmonary edema or pleural disease
[2024-02-05] MEDS: METOPROLOL SUCCINATE XL 25 MG TABCR 12.5 MG PO (10:17)
[2024-02-05 10:43] LABS: Partial Thromboplastin Time 56.4 Seconds (22.0-36.0)
[2024-02-05 11:05] LABS: Free T4 (Free Thyroxine) 0.93 ng/dL (0.89-1.76)
--- NOTE | 2024-02-05 12:03 | PD.IMCONS ---
HPI Data of Consult Requesting Physician: Jim Sullivan MD Primary Care Provider: Piyush Her MD Consult Narrative History of present illness: This is a 48-year-old female with past medical history of gastritis/GERD, substance use disorder (methamphetamine and opioid), nephrolithiasis, cholelithiasis pt seen in the ER with chest pain EKG no acute changes ; troponin peaked at 10 No prior cardiac history cc:: cc: Jim Sullivan MD Meds Home Medications and Allergies Home Medications ?Medication ?Instructions ?Recorded ?Confirmed ?Type omeprazole 20 mg tablet,delayed 20 mg PO QDAY 11/29/18 08/15/20 History release Allergies Allergy/AdvReac Type Severity Reaction Status Date / Time No Known Allergies Allergy Verified 02/04/24 20:19 Exam Vital Signs Temp Pulse Resp BP Pulse Ox O2 Del Method 96.7 F L 80 24 H 130/91 H 95 Room Air 02/05/24 08:00 02/05/24 10:17 02/05/24 08:00 02/05/24 10:17 02/05/24 08:00 02/05/24 08:00 Routine HEENT Exam Head: Present normocephalic and atraumatic Eye: Present EOMI and PERRL ENT: Present mucous membranes moist Routine Neck Exam Neck: Present supple and trachea midline Routine Respiratory Exam Respiratory: Present chest non-tender, lungs clear, normal breath sounds and no resp distress Routine Cardiovascular Exam Cardiovascular: Present RRR Routine Abdominal Exam Abdominal: Present soft and normoactive bowel sounds Routine Extremities Exam Extremities: Present full ROM Routine Skin Exam Skin: Present intact, dry and warm Routine Neurological Exam Neurological: Present alert, oriented X3 and CN II-XII intact Routine Psychiatric Exam Psychiatric: Present normal affect and normal thought process Results Labs 02/05/24 05:19 02/05/24 05:19 Labs: Short CBC 02/04/24 02/05/24 Range/Units 21:15 05:19 WBC 7.1 8.0 (3.6-11.0) Thou/mm3 Hgb 13.0 12.1 (12.0-16.0) g/dL Hct 40.2 37.5 (36.0-46.0) % Plt Count 235 214 (140-440) Thou/mm3 BMP 02/04/24 02/05/24 21:15 05:19 Sodium 140 140 Potassium 4.5 3.7 D Chloride 105 106 Carbon Dioxide 27.8 27.1 BUN 11 12 Creatinine 0.9 0.7 Glucose 103 97 Calcium 9.3 9.0 Cardiac Enzymes 02/04/24 02/05/24 02/05/24 Range/Units 21:15 00:36 05:19 Troponin I 1.002 H* 8.870 H* D 10.293 H* D (0.0-0.045) ng/mL Liver Function 02/04/24 02/05/24 Range/Units 21:15 05:19 Total Bilirubin 0.3 0.3 (0.3-1.2) mg/dL AST 33 67 H (0-34) U/L ALT 11 11 (10-49) U/L Alkaline Phosphatase 130 H 116 (46-116) U/L Albumin 4.5 4.1 (3.5-5.0) gm/dL Urine 02/04/24 Range/Units 21:35 Urine Color Lt-Yellow (Lt Yel-Yel) Urine Clarity Clear (Clear/Hazy) Urine pH 6.5 (5.0-7.0) Ur Specific [place] 1.027 (1.001-1.035) Urine Protein Negative (Neg - Trace) Urine Glucose (UA) Negative (Negative) Assessment and Plan Assessment and plan (1) Non-ST elevation DC (NSTEMI): Status: Acute (2) GERD (gastroesophageal reflux disease): Status: Acute Additional Assessment & Plan Additional Plan: agree with current treatment recommend echo will need heart cath
--- NOTE | 2024-02-05 12:26 | PC.SS ---
SS met with patient regarding her d/c plan. Pt is alert/oriented. Pt was admitted for Chest Pain. Pt confirmed demographic and contact information is correct on facesheet. Pt resides with dad and kids. Pt ambulates independently without assistance or DME. Pt is ok with all ADLs. Patient?s pharmacy of choice is [facility] on [address]. Pt named her dtr, Yasmin Beatty medical decision maker if she is unable. Patient?s choice is to return home upon d/c. Pt does not have an advance directive, SS offered, and pt declined. Pt states she is diabetic, has glucometer, and test strips at home. Pt states she is not on dialysis. Pt states she last followed up with PCP about 1 year ago. D/C plan: Return home Next of Kin: Yasmin Asif dtr, phone# [phone] PCP: Dr. Ciro Jackson at [facility] Address: Correct on facesheet
--- NOTE | 2024-02-05 13:25 | CHAP ---
09:30 AM Visited by spiritual care volunteer Provided prayer for Patient.
[2024-02-05 18:04] LABS: Partial Thromboplastin Time 50.4 Seconds (22.0-36.0)
[2024-02-06] VITALS (8 sets, daily range): BP systolic 98–126; BP diastolic 69–82; PULSE 54–90; RESP 15–23; TEMP 36.3–36.6; O2SAT 96–98
[2024-02-06 00:13] LABS: Partial Thromboplastin Time 48.1 Seconds (22.0-36.0)
[2024-02-06 00:22] LABS: Troponin I 6.189 ng/mL (0.0-0.045)
[2024-02-06] MEDS: HEPARIN SOD INJ 5000 UNIT/ML VIAL 2000 UNIT IV (00:50)
[2024-02-06] MEDS: Heparin/D5w 25K 250 ML Ivpb 25,000 UNIT/250 ML BAG 9.978 UNIT IV ×2 (00:51→05:59)
[2024-02-06] MEDS: ACETAMINOPHEN 325 MG TABLET 650 MG PO (01:49)
[2024-02-06] MEDS: CALCIUM CARBONATE 600 MG TABLET PO (02:19)
[2024-02-06 07:50] LABS: Basophils % (Auto) 0 % (0-2.5); Eosinophils # (Auto) 0.2 Thou/mm3 (0.0-0.5); Eosinophils % (Auto) 3 % (0-10); Hematocrit 40.6 % (36.0-46.0); Immature Granulocytes % (Auto) 0 % (0-0); Immature Granulocytes Auto 0.01 Thou/mm3 (0.00-0.00); Lymphocytes # (Auto) 2.9 Thou/mm3 (1.0-4.8); Lymphocytes % (Auto) 48 % (10-50); Mean Corpuscular Hemoglobin 27.9 pg (25.0-35.0); Mean Corpuscular Volume 87 fL (80-100); Monocytes # (Auto) 0.3 Thou/mm3 (0.0-0.8); Monocytes % (Auto) 6 % (0-12); Neutrophils # (Auto) 2.6 Thou/mm3 (1.8-7.7); Neutrophils % (Auto) 43 % (37-80); Nucleated Red Blood Cell % 0 /100 WBC (0); Platelet Count 224 Thou/mm3 (140-440); RDW Standard Deviation 41.4 fL (36.4-46.3); Red Blood Count 4.66 Miln/mm3 (4.00-5.20)
[2024-02-06] MEDS: ASPIRIN EC 81 MG TABEC PO (08:03)
[2024-02-06] MEDS: PANTOPRAZOLE 40 MG TABLET PO (08:03)
[2024-02-06] MEDS: ATORVASTATIN CALCIUM 10 MG TABLET 80 MG PO (08:04)
[2024-02-06 08:20] LABS: Alanine Aminotransferase 35 U/L (10-49); Albumin/Globulin Ratio 1.7 (1.2-2.2); Alkaline Phosphatase 125 U/L (46-116); Anion Gap 5 (7-16); Aspartate Amino Transferase 70 U/L (0-34); BUN/Creatinine Ratio 16 Ratio (12-20); Bilirubin,Total 0.4 mg/dL (0.3-1.2); Blood Urea Nitrogen 11 mg/dL (9-23); Calcium 9.1 mg/dL (8.3-10.6); Calcium (Corrected) 9.1 mg/dL (8.5-10.1); Chloride 106 mMol/L (98-107); Creatinine (Component) 0.7 mg/dL (0.6-1.3); Estimated Creatinine Clearance 88.9 mL/min (>60); Globulin 2.4 gm/dL (2.3-3.5); Glucose 97 mg/dL (74-106); Osmolality,Calculated 278 (275-295); Sodium 140 mMol/L (136-145); Total Protein 6.4 gm/dL (5.7-8.2); eGFR > 60 See Note
[2024-02-06 08:45] LABS: INR 1.1 (0.9-1.3); Partial Thromboplastin Time 76.2 Seconds (22.0-36.0); Prothrombin Time 11.5 Seconds (9.0-12.2)
--- NOTE | 2024-02-06 09:08 | PC.SS ---
Follow up note: Cardio recommendations pending. Pt will return home upon dc.
--- NOTE | 2024-02-06 10:30 | PC.SS ---
Patient's tox screen was positive for meth use. SS received referral for positive screening for safety needs. SS met with pt who states she does not use meth often and last time she used meth was the other day for fun. SS offered pt community resources for drug programs and pt declined. Pt states she will return home with her family (life partner and kids).
--- NOTE | 2024-02-06 13:33 | ESPR_ITS ---
<Statement entered by Terra Camara MD - 02/06/24 16:34> Patient was seen and examined at bedside. She denied any chest pain. Overnight the patient heart rate was in the 60s and dropped to the 50s. Blood pressure also was soft 93/55 for that reason metoprolol was held. Today we contacted the automatic casting machine operator Dr. Worthy and he recommended to do catheterization of coronary arteries on Sunday. Today patient still on heparin drip, hemoglobin and platelets within normal limits. No signs of bleeding. PTT 79 and heparin is being adjusted by pharmacy. Action ICU score is 9.3% chance of complications require ICU admission. Today also patient was complaining of heartburn she was given sucralfate tablet x 1. - Patient's plan and care discussed with my attending, Dr. Salima Camara MD Internal Medicine PGY-2 Documentation for date of: 02/06/24 Subjective Subjective Interval history: Patient examined at bedside today. Acute overnight events include some bradycardia mid 50s, metoprolol was held. Patient was also asymptomatic bradycardia. Patient reports she is doing well, rates her chest pain 2 out of 10, has significantly improved, has not had a bowel movement. No other complaints has not had any shortness of breath or vomiting. Exam Vital Signs Temp Pulse Resp BP Pulse Ox O2 Del Method 97.6 F 64 18 98/69 97 Room Air 02/06/24 11:56 02/06/24 11:56 02/06/24 11:56 02/06/24 11:56 02/06/24 11:56 02/06/24 11:56 Narrative Exam General: AAOx3, NAD, a bit sleepy HEENT: Moist mucous membranes, conjunctiva clear, EOMI, PERRLA, Cardiovascular: S1, S2, radial pulses +2 bilat, RRR, chest not TTP Pulmonary: CTAB bilat no cough, no wheezing GI: No tenderness to light or deep palpitation, no guarding, rigidity, rebound tenderness or distension Extremities: No presence of trace or pitting edema in lower extremities bilaterally, dorsalis pedis pulses +2 bilaterally Neuro: AAOx3, no focal motor or sensory deficits in the UE or LE bilat Psych: Good judgement, thought and behavior. Cooperative Objective Labs 02/07/24 05:50 02/07/24 05:50 Labs: Laboratory Results - last 24 hr 02/05/24 02/05/24 02/06/24 17:26 23:45 07:20 WBC 6.0 RBC 4.66 Hgb 13.0 Hct 40.6 MCV 87 MCH 27.9 MCHC 32.0 RDW Std Deviation 41.4 Plt Count 224 Neut % (Auto) 43 Lymph % (Auto) 48 [place] % (Auto) 6 Eos % (Auto) 3 Baso % (Auto) 0 Neut # (Auto) 2.6 Lymph # (Auto) 2.9 [place] # (Auto) 0.3 Eos # (Auto) 0.2 Baso # (Auto) 0.0 Immature Gran # (Auto) 0.01 H Absolute Nucleated RBC 0.00 Immature Gran % 0 Nucleated RBC % 0 PT 11.5 INR 1.1 APTT 50.4 H 48.1 H 76.2 H D Sodium 140 Potassium 4.0 Chloride 106 Carbon Dioxide 29.0 Anion Gap 5 L BUN 11 Creatinine 0.7 Estim Creat Clear Calc 88.9 eGFR > 60 BUN/Creatinine Ratio 16 Glucose 97 Calculated Osmolality 278 Calcium 9.1 Corrected Calcium 9.1 Total Bilirubin 0.4 AST 70 H ALT 35 Alkaline Phosphatase 125 H Troponin I 6.189 H* D Total Protein 6.4 Albumin 4.0 Globulin 2.4 Albumin/Globulin Ratio 1.7 Quality Measures Quality Measures none Assessment & Plan Assessment Current Active Medications: Generic Name Dose Route Start Last Admin Trade Name Freq PRN Reason Stop Dose Admin Acetaminophen 650 mg 02/05/24 02:24 02/06/24 01:49 Acetaminophen 325 Mg Tablet PO 03/06/24 02:23 650 mg Q6H PRN Administration PAIN SCALE 1-3 (mild Aspirin 81 mg 02/05/24 09:00 02/06/24 08:03 Aspirin Ec 81 Mg Tabec PO 03/06/24 08:59 81 mg QDAY VIDA Administration Atorvastatin Calcium 80 mg 02/07/24 09:00 Atorvastatin Calcium 20 Mg Tablet PO 03/06/24 08:59 QDAY VIDA Heparin Sodium/Dextrose 25,000 unit in 250 mls @ 8.552 mls/hr 02/05/24 01:30 02/06/24 05:59 Heparin In D5w Ivpb IV 02/19/24 01:29 14 units/kg/hr .Q24H VIDA 9.978 mls/hr Administration Protocol 12 UNITS/KG/HR Metoprolol Succinate 12.5 mg 02/05/24 10:15 02/06/24 08:00 Metoprolol Succinate Xl 25 Mg Tabcr PO 03/06/24 10:14 Not Given QDAY VIDA Ondansetron HCl 4 mg 02/05/24 02:24 Ondansetron Inj 2 Mg/Ml Inj 2 Ml IV 03/06/24 02:23 Q6H PRN NAUSEA OR VOMITING Protocol Pantoprazole Sodium 40 mg 02/05/24 09:00 02/06/24 08:03 Pantoprazole 40 Mg Tablet PO 03/06/24 08:59 40 mg QDAY VIDA Administration Sennosides 1 tab 02/05/24 02:24 Senna Tablet PO 03/06/24 02:23 QDAY PRN constipation Protocol Plan Assessment: 48-year-old female with past medical history of gastritis/GERD, substance use disorder (methamphetamine and opioid), nephrolithiasis, cholelithiasis presenting with chest pain which she describes as a sharp sensation in the middle of her chest which radiated up into her jaw will be admitted for NSTEMI type I with elevated troponins; started on heparin drip and cardiology has been consulted. #NSTEMI type I #Elevated troponins, improved #Asymptomatic bradycardia Patient presenting with typical chest pain symptoms; central chest pain radiating to the left and up to her jaw associated with shortness of breath Patient has significant family history of coronary artery disease; mother with quadruple bypass in her 50s, grandmother with 3 stents placed Patient is an active smoker, with [id number] history Patient likely has undiagnosed hypertension; current blood pressure within normal limits Preliminary ASCVD score is showing 3.0% Risk of cardiovascular event (coronary or stroke or non-fatal [place] or stroke) in next 10 years. In the ED, EKG showed normal sinus rhythm with left axis deviation but no concerning ST changes Characteristic chest pain/pressure in addition to risk factors Troponins 1.002 => 8.070 --> ~10 -----> 8 --> 6, will not check moving forward Pt denies taking meth or any drugs, but Utox shows meth Pt is not reporting severe chest pain at this time, and has improved with medicines and anticoagulation Cholesterol numbers unremarkable A1c ~5.0 Chest CTA shows no dissection, or aneurysm Patient to get CT angiogram with Dr. Worthy on Sunday, spoke with him Patient had bradycardia, was asymptomatic, will skip metoprolol for now Echo: Normal LV size and function. Grade I diastolic dysfunction. Estimated EF 55-60% NSTEMI likely related to drug history Plan: Dr. Worthy, cardiology consulted appreciate recommendations Continue heparin drip with protocol, CT angiogram on Sunday Aspirin 81 mg daily and atorvastatin 80 mg Keep potassium greater than 4 and magnesium greater than 2 Oxygen as needed Held metoprolol in setting of bradycardia #Meth use disorder Patient actively uses methamphetamine; U-Tox positive Plan: Counseled patient on drug cessation Consider director social welfare #Low TSH DDx: Reactive vs subclinical TSH 0.38 T4 0.93 Could be reactive or subclinical Plan: -Will need to follow up outpatient #Gastritis/GERD Patient on home omeprazole 40 mg in the a.m. Plan: ?Symptomatic Protonix 40 mg per formulary #Health Maintenance Disposition: Telemetry, NSTEMI for Type I DVT prophylaxis: Heparin GI prophylaxis: Protonix Diet: Cardiac CODE STATUS: Full Patient seen and care discussed with my senior resident, Dr. Camara , and my attending physician, Dr. Salima Aly, PGY-1 Attending Provider Attestation/Addendum I have discussed and was present for the essential components of the history, physical examination, diagnosis, and treatment plan with the resident. I agree with the patient's care as documented by the resident and amended herein by me. Dimitri Borrego DO. Patient seen and evaluated this AM. In short patient is a 48-year-old female with a significant past medical history of GERD, methamphetamine and opioid abuse, renal stones, cholelithiasis who initially presented with chest pain, subsequently admitted for NSTEMI, likely type I No acute events overnight, vital signs stable, patient afebrile, labs largely unremarkable, patient denies any chest pain, palpitations, diaphoresis, nausea, vomiting or diarrhea. Cardiology consulted, cath scheduled for Sunday, 02/07 patient presently on aspirin 81 mg daily, atorvastatin 80 mg daily, heparin drip, metoprolol XL 12.5 mg daily and Protonix 40 mg daily. Will continue to monitor closely. Although this document has been carefully reviewed, there may still be some phonetic and other typographical errors. These errors are purely grammatical due to imperfections in the software program and should not be construed in any way to compromise the substance of the patient's medical care during this visit.
[2024-02-07] VITALS (8 sets, daily range): BP systolic 96–124; BP diastolic 59–78; PULSE 66–84; RESP 14–26; TEMP 35.9–36.6; O2SAT 96–100; BMI 29.6
[2024-02-07 06:22] LABS: Basophils % (Auto) 0 % (0-2.5); Eosinophils # (Auto) 0.2 Thou/mm3 (0.0-0.5); Eosinophils % (Auto) 2 % (0-10); Hemoglobin 14.1 g/dL (12.0-16.0); Immature Granulocytes % (Auto) 0 % (0-0); Immature Granulocytes Auto 0.03 Thou/mm3 (0.00-0.00); Lymphocytes # (Auto) 3.1 Thou/mm3 (1.0-4.8); Lymphocytes % (Auto) 41 % (10-50); Mean Corpuscular Hemoglobin 28.1 pg (25.0-35.0); Mean Corpuscular Volume 88 fL (80-100); Monocytes # (Auto) 0.4 Thou/mm3 (0.0-0.8); Monocytes % (Auto) 6 % (0-12); Neutrophils # (Auto) 3.9 Thou/mm3 (1.8-7.7); Neutrophils % (Auto) 51 % (37-80); Nucleated Red Blood Cell % 0 /100 WBC (0); Platelet Count 227 Thou/mm3 (140-440); RDW Standard Deviation 41.1 fL (36.4-46.3); Red Blood Count 5.01 Miln/mm3 (4.00-5.20); White Blood Count 7.7 Thou/mm3 (3.6-11.0)
[2024-02-07 06:51] LABS: Alanine Aminotransferase 49 U/L (10-49); Albumin, Serum 4.4 gm/dL (3.5-5.0); Albumin/Globulin Ratio 1.8 (1.2-2.2); Alkaline Phosphatase 144 U/L (46-116); Anion Gap 6 (7-16); Aspartate Amino Transferase 69 U/L (0-34); BUN/Creatinine Ratio 18 Ratio (12-20); Bilirubin,Total 0.2 mg/dL (0.3-1.2); Blood Urea Nitrogen 14 mg/dL (9-23); Calcium 9.8 mg/dL (8.3-10.6); Calcium (Corrected) 9.8 mg/dL (8.5-10.1); Chloride 104 mMol/L (98-107); Creatinine (Component) 0.8 mg/dL (0.6-1.3); Estimated Creatinine Clearance 76.8 mL/min (>60); Globulin 2.5 gm/dL (2.3-3.5); Glucose 97 mg/dL (74-106); Osmolality,Calculated 278 (275-295); Sodium 139 mMol/L (136-145); Total Protein 6.9 gm/dL (5.7-8.2); eGFR > 60 See Note
[2024-02-07] MEDS: Heparin/D5w 25K 250 ML Ivpb 25,000 UNIT/250 ML BAG 9.978 UNIT IV (07:04)
[2024-02-07] MEDS: ATORVASTATIN CALCIUM 20 MG TABLET 80 MG PO (08:18)
[2024-02-07] MEDS: PANTOPRAZOLE 40 MG TABLET PO (08:19)
[2024-02-07] MEDS: ASPIRIN EC 81 MG TABEC PO (08:19)
[2024-02-07] MEDS: METOPROLOL SUCCINATE XL 25 MG TABCR 12.5 MG PO (08:19)
--- NOTE | 2024-02-07 08:25 | PC.NURSE ---
PTT result pending,called lab ,talked to Artem,stated it will be ready in 20 minutes,having problem with machine.
[2024-02-07 08:29] LABS: Partial Thromboplastin Time 56.8 Seconds (22.0-36.0)
--- NOTE | 2024-02-07 14:22 | ESPR_ITS ---
<Statement entered by Terra Camara MD - 02/07/24 16:30> Patient was seen and examined at bedside. She denied any chest pain or shortness of breath or chest pressure. With uptrending troponin as it peaked at 10. Cardiology going to do the cardiac cath tomorrow patient will be n.p.o. after midnight we will keep the heparin drip, serum creatinine with normal limits. Patient's plan and care discussed with my attending, Dr. Salima Camara MD Internal Medicine PGY-2 Documentation for date of: 02/07/24 Subjective Subjective Interval history: Pt examined at bedside today. No acute overnight events. Has no complaints, wondering when she is going to get CT angiogram done. Exam Vital Signs Temp Pulse Resp BP Pulse Ox O2 Del Method 97.8 F 67 14 124/69 99 Room Air 02/07/24 12:00 02/07/24 12:00 02/07/24 12:00 02/07/24 12:00 02/07/24 12:00 02/07/24 12:00 Narrative Exam General: AAOx3, NAD, a bit sleepy HEENT: Moist mucous membranes, conjunctiva clear, EOMI, PERRLA, Cardiovascular: S1, S2, radial pulses +2 bilat, RRR, chest not TTP Pulmonary: CTAB bilat no cough, no wheezing GI: No tenderness to light or deep palpitation, no guarding, rigidity, rebound tenderness or distension Extremities: No presence of trace or pitting edema in lower extremities bilaterally, dorsalis pedis pulses +2 bilaterally Neuro: AAOx3, no focal motor or sensory deficits in the UE or LE bilat Psych: Good judgement, thought and behavior. Cooperative Objective Labs 02/07/24 05:50 02/07/24 05:50 Labs: Laboratory Results - last 24 hr 02/07/24 02/07/24 05:50 06:11 WBC 7.7 RBC 5.01 Hgb 14.1 Hct 44.0 MCV 88 MCH 28.1 MCHC 32.0 RDW Std Deviation 41.1 Plt Count 227 Neut % (Auto) 51 Lymph % (Auto) 41 [place] % (Auto) 6 Eos % (Auto) 2 Baso % (Auto) 0 Neut # (Auto) 3.9 Lymph # (Auto) 3.1 [place] # (Auto) 0.4 Eos # (Auto) 0.2 Baso # (Auto) 0.0 Immature Gran # (Auto) 0.03 H Absolute Nucleated RBC 0.00 Immature Gran % 0 Nucleated RBC % 0 APTT 56.8 H D Sodium 139 Potassium 4.0 Chloride 104 Carbon Dioxide 29.0 Anion Gap 6 L BUN 14 Creatinine 0.8 Estim Creat Clear Calc 76.8 eGFR > 60 BUN/Creatinine Ratio 18 Glucose 97 Calculated Osmolality 278 Calcium 9.8 Corrected Calcium 9.8 Total Bilirubin 0.2 L AST 69 H ALT 49 Alkaline Phosphatase 144 H Total Protein 6.9 Albumin 4.4 Globulin 2.5 Albumin/Globulin Ratio 1.8 Quality Measures Quality Measures none Assessment & Plan Assessment Current Active Medications: Generic Name Dose Route Start Last Admin Trade Name Freq PRN Reason Stop Dose Admin Acetaminophen 650 mg 02/05/24 02:24 02/06/24 01:49 Acetaminophen 325 Mg Tablet PO 03/06/24 02:23 650 mg Q6H PRN Administration PAIN SCALE 1-3 (mild Aspirin 81 mg 02/05/24 09:00 02/07/24 08:19 Aspirin Ec 81 Mg Tabec PO 03/06/24 08:59 81 mg QDAY VIDA Administration Atorvastatin Calcium 80 mg 02/07/24 09:00 02/07/24 08:18 Atorvastatin Calcium 20 Mg Tablet PO 03/06/24 08:59 80 mg QDAY VIDA Administration Heparin Sodium/Dextrose 25,000 unit in 250 mls @ 8.552 mls/hr 02/05/24 01:30 02/07/24 07:04 Heparin In D5w Ivpb IV 02/19/24 01:29 14 units/kg/hr .Q24H VIDA 9.978 mls/hr Administration Protocol 12 UNITS/KG/HR Metoprolol Succinate 12.5 mg 02/05/24 10:15 02/07/24 08:19 Metoprolol Succinate Xl 25 Mg Tabcr PO 03/06/24 10:14 12.5 mg QDAY VIDA Administration Ondansetron HCl 4 mg 02/05/24 02:24 Ondansetron Inj 2 Mg/Ml Inj 2 Ml IV 03/06/24 02:23 Q6H PRN NAUSEA OR VOMITING Protocol Pantoprazole Sodium 40 mg 02/05/24 09:00 02/07/24 08:19 Pantoprazole 40 Mg Tablet PO 03/06/24 08:59 40 mg QDAY VIDA Administration Sennosides 1 tab 02/05/24 02:24 Senna Tablet PO 03/06/24 02:23 QDAY PRN constipation Protocol Plan Assessment: 48-year-old female with past medical history of gastritis/GERD, substance use disorder (methamphetamine and opioid), nephrolithiasis, cholelithiasis presenting with chest pain which she describes as a sharp sensation in the middle of her chest which radiated up into her jaw will be admitted for NSTEMI type I with elevated troponins; started on heparin drip and cardiology has been consulted. #NSTEMI type I #Elevated troponins, improved #Asymptomatic bradycardia Patient presenting with typical chest pain symptoms; central chest pain radiating to the left and up to her jaw associated with shortness of breath Patient has significant family history of coronary artery disease; mother with quadruple bypass in her 50s, grandmother with 3 stents placed Patient is an active smoker, with [id number] history Patient likely has undiagnosed hypertension; current blood pressure within normal limits Preliminary ASCVD score is showing 3.0% Risk of cardiovascular event (coronary or stroke or non-fatal [place] or stroke) in next 10 years. In the ED, EKG showed normal sinus rhythm with left axis deviation but no concerning ST changes Characteristic chest pain/pressure in addition to risk factors Troponins 1.002 => 8.070 --> ~10 -----> 8 --> 6, will not check moving forward Pt denies taking meth or any drugs, but Utox shows meth Pt is not reporting severe chest pain at this time, and has improved with medicines and anticoagulation Cholesterol numbers unremarkable A1c ~5.0 Chest CTA shows no dissection, or aneurysm Patient to get cardiac cath with Dr. Worthy on Sunday, spoke with him Patient had bradycardia, was asymptomatic, will skip metoprolol for now Echo: Normal LV size and function. Grade I diastolic dysfunction. Estimated EF 55-60% NSTEMI likely related to drug history Plan: Dr. Worthy, cardiology consulted appreciate recommendations Continue heparin drip with protocol, cath on Sunday Trending PTT NPO at midnight Aspirin 81 mg daily and atorvastatin 80 mg Keep potassium greater than 4 and magnesium greater than 2 Oxygen as needed Held metoprolol in setting of bradycardia #Meth use disorder Patient actively uses methamphetamine; U-Tox positive Plan: Counseled patient on drug cessation Consider sexual assault social worker #Low TSH DDx: Reactive vs subclinical TSH 0.38 T4 0.93 Could be reactive or subclinical Plan: -Will need to follow up outpatient #Gastritis/GERD Patient on home omeprazole 40 mg in the a.m. Plan: ?Symptomatic Protonix 40 mg per formulary #Health Maintenance Disposition: Telemetry, NSTEMI for Type I DVT prophylaxis: Heparin GI prophylaxis: Protonix Diet: Cardiac CODE STATUS: Full Patient seen and care discussed with my senior resident, Dr. Camara , and my attending physician, Dr. Salima Aly, PGY-1 Attending Provider Attestation/Addendum I have discussed and was present for the essential components of the history, physical examination, diagnosis, and treatment plan with the resident. I agree with the patient's care as documented by the resident and amended herein by me. Dimitri Borrego DO. Patient seen and evaluated this AM. In short patient is a 48-year-old female with a significant past medical history of GERD, methamphetamine and opioid abuse, renal stones, cholelithiasis who initially presented with chest pain, subsequently admitted for NSTEMI, likely type I No acute events overnight, no significant change since previous day, vital signs stable, patient afebrile overnight, patient has no subjective complaints. Cath scheduled for tomorrow. Although this document has been carefully reviewed, there may still be some phonetic and other typographical errors. These errors are purely grammatical due to imperfections in the software program and should not be construed in any way to compromise the substance of the patient's medical care during this visit.
[2024-02-08] VITALS (13 sets, daily range): BP systolic 107–128; BP diastolic 66–91; PULSE 62–92; RESP 16–21; TEMP 36–36.7; O2SAT 97–100; BMI 30.2
[2024-02-08 05:50] LABS: Basophils % (Auto) 0 % (0-2.5); Eosinophils # (Auto) 0.2 Thou/mm3 (0.0-0.5); Eosinophils % (Auto) 2 % (0-10); Hematocrit 42.3 % (36.0-46.0); Hemoglobin 13.3 g/dL (12.0-16.0); Immature Granulocytes % (Auto) 0 % (0-0); Immature Granulocytes Auto 0.02 Thou/mm3 (0.00-0.00); Lymphocytes % (Auto) 37 % (10-50); Mean Corpuscular HGB Conc 31.4 g/dl (31.0-37.0); Mean Corpuscular Hemoglobin 27.3 pg (25.0-35.0); Mean Corpuscular Volume 87 fL (80-100); Monocytes # (Auto) 0.5 Thou/mm3 (0.0-0.8); Monocytes % (Auto) 7 % (0-12); Neutrophils # (Auto) 4.4 Thou/mm3 (1.8-7.7); Neutrophils % (Auto) 54 % (37-80); Nucleated Red Blood Cell % 0 /100 WBC (0); Platelet Count 169 Thou/mm3 (140-440); RDW Standard Deviation 40.5 fL (36.4-46.3); Red Blood Count 4.87 Miln/mm3 (4.00-5.20); White Blood Count 8.1 Thou/mm3 (3.6-11.0)
[2024-02-08 06:10] LABS: Partial Thromboplastin Time 59.1 Seconds (22.0-36.0)
[2024-02-08 06:11] LABS: Alanine Aminotransferase 106 U/L (10-49); Albumin, Serum 4.1 gm/dL (3.5-5.0); Albumin/Globulin Ratio 1.7 (1.2-2.2); Alkaline Phosphatase 145 U/L (46-116); Anion Gap 7 (7-16); Aspartate Amino Transferase 130 U/L (0-34); BUN/Creatinine Ratio 19 Ratio (12-20); Bilirubin,Total 0.3 mg/dL (0.3-1.2); Blood Urea Nitrogen 17 mg/dL (9-23); Calcium 9.3 mg/dL (8.3-10.6); Calcium (Corrected) 9.3 mg/dL (8.5-10.1); Carbon Dioxide 28.6 mMol/L (20.0-31.0); Chloride 104 mMol/L (98-107); Creatinine (Component) 0.9 mg/dL (0.6-1.3); Estimated Creatinine Clearance 68.9 mL/min (>60); Globulin 2.4 gm/dL (2.3-3.5); Glucose 101 mg/dL (74-106); Osmolality,Calculated 280 (275-295); Potassium 4.2 mMol/L (3.4-5.1); Sodium 140 mMol/L (136-145); Total Protein 6.5 gm/dL (5.7-8.2); eGFR > 60 See Note
--- NOTE | 2024-02-08 10:31 | PC.SS ---
Follow up note: laboratory machinist today. Pt is possible d/c home.
--- NOTE | 2024-02-08 11:00 | CHAP ---
Patient was visited by the Spiritual Care Volunteer who prayed for them. (Volunteer was in the hospital from C. 10:00-11:00)
--- NOTE | 2024-02-08 12:36 | PC.NURSE ---
Paused heparin drip at 11:15 patient going to cathlab
--- NOTE | 2024-02-08 13:32 | PD.CARDCATH ---
Cardiac Cath Procedure Procedure Narrative Date of the procedure 02/08/2024 Title of the procedure 1. Left heart catheterization 2. Left coronary angiogram 3. Right coronary angiogram 4. Left ventriculogram 5. Conscious sedation 6. Radiographic interpretation supervision 7. Ultrasound guidance for Right radial access Indication for the procedure This is a 48-year-old female with hypertension hyperlipidemia patient was admitted with chest pain and ruled in for non-ST elevation OR Peak troponin was 10 Cardiac catheter and cholangiogram recommended Procedure This is done in the cardiac lab under continuous electrocardiographic monitoring Intermittent blood pressure monitoring right radial arterial access obtained using modified Seldinger technique 6 [place] radial sheath was placed under ultrasound guidence TIG catheter was used for selective injection of the Left coronary artery TIG cather was used for selective injection of the Right coroanry artery TIG cather was used for LV gram Findings Hemodynamics Left ventricular systolic function is 50% End-diastolic pressure was 16 mmHg Gradient across the aortic valve is 0 mm gradient Coronary anatomy Right Dominance Left main coronary artery is Normal Left anterior descending artery is Normal Diagonal vessel is Minor luminal irregularities Left circumflex artery is Normal Obtuse marginal vessel is Normal Right coronary artery is Normal Posterior descending artery is Minor luminal irregularities Conclusion No significant coronary lesion Recommendation Continue medical management
--- NOTE | 2024-02-08 13:50 | ESPR_ITS ---
<Statement entered by Terra Camara MD - 02/08/24 15:13> Patient was seen and examined at bedside. Patient was undergone coronary catheterization and it was negative for any clot or blockage. Heparin drip was discontinued by Dr Worthy. Possible discharge tomorrow after we monitor her kidney functions. - Patient's plan and care discussed with my attending, Dr. Salima Camara MD Internal Medicine PGY-2 Documentation for date of: 02/08/24 Subjective Subjective Interval history: Pt examined at bedside today. No acute overnight events. Is doing well, wondering when she will get her cath today. No other complaints at this time. Denies chest pain and SOB Exam Vital Signs Temp Pulse Resp BP Pulse Ox O2 Del Method 97.9 F 69 20 128/83 100 Room Air 02/08/24 11:46 02/08/24 11:46 02/08/24 11:46 02/08/24 11:46 02/08/24 11:46 02/08/24 11:46 Narrative Exam General: AAOx3, NAD HEENT: Moist mucous membranes, conjunctiva clear, EOMI, PERRLA, Cardiovascular: S1, S2, radial pulses +2 bilat, RRR, chest not TTP Pulmonary: CTAB bilat no cough, no wheezing GI: No tenderness to light or deep palpitation, no guarding, rigidity, rebound tenderness or distension Extremities: No presence of trace or pitting edema in lower extremities bilaterally, dorsalis pedis pulses +2 bilaterally Neuro: AAOx3, no focal motor or sensory deficits in the UE or LE bilat Psych: Good judgement, thought and behavior. Cooperative Objective Labs 02/08/24 05:07 02/08/24 05:07 Labs: Laboratory Results - last 24 hr 02/08/24 05:07 WBC 8.1 RBC 4.87 Hgb 13.3 Hct 42.3 MCV 87 MCH 27.3 MCHC 31.4 RDW Std Deviation 40.5 Plt Count 169 D Neut % (Auto) 54 Lymph % (Auto) 37 [place] % (Auto) 7 Eos % (Auto) 2 Baso % (Auto) 0 Neut # (Auto) 4.4 Lymph # (Auto) 3.0 [place] # (Auto) 0.5 Eos # (Auto) 0.2 Baso # (Auto) 0.0 Immature Gran # (Auto) 0.02 H Absolute Nucleated RBC 0.00 Immature Gran % 0 Nucleated RBC % 0 APTT 59.1 H Sodium 140 Potassium 4.2 Chloride 104 Carbon Dioxide 28.6 Anion Gap 7 BUN 17 Creatinine 0.9 Estim Creat Clear Calc 68.9 eGFR > 60 BUN/Creatinine Ratio 19 Glucose 101 Calculated Osmolality 280 Calcium 9.3 Corrected Calcium 9.3 Total Bilirubin 0.3 AST 130 H ALT 106 H Alkaline Phosphatase 145 H Total Protein 6.5 Albumin 4.1 Globulin 2.4 Albumin/Globulin Ratio 1.7 Quality Measures Quality Measures none Assessment & Plan Assessment Current Active Medications: Generic Name Dose Route Start Last Admin Trade Name Freq PRN Reason Stop Dose Admin Acetaminophen 650 mg 02/05/24 02:24 02/06/24 01:49 Acetaminophen 325 Mg Tablet PO 03/06/24 02:23 650 mg Q6H PRN Administration PAIN SCALE 1-3 (mild Aspirin 81 mg 02/05/24 09:00 02/08/24 09:54 Aspirin Ec 81 Mg Tabec PO 03/06/24 08:59 Not Given QDAY VIDA Atorvastatin Calcium 40 mg 02/08/24 11:15 Atorvastatin Calcium 20 Mg Tablet PO 03/09/24 11:14 QDAY VIDA Heparin Sodium/Dextrose 25,000 unit in 250 mls @ 8.552 mls/hr 02/05/24 01:30 02/08/24 11:07 Heparin In D5w Ivpb IV 02/19/24 01:29 Infused .Q24H VIDA Titration Protocol 12 UNITS/KG/HR Metoprolol Succinate 12.5 mg 02/05/24 10:15 02/08/24 09:54 Metoprolol Succinate Xl 25 Mg Tabcr PO 03/06/24 10:14 Not Given QDAY VIDA Ondansetron HCl 4 mg 02/05/24 02:24 Ondansetron Inj 2 Mg/Ml Inj 2 Ml IV 03/06/24 02:23 Q6H PRN NAUSEA OR VOMITING Protocol Pantoprazole Sodium 40 mg 02/05/24 09:00 02/08/24 09:54 Pantoprazole 40 Mg Tablet PO 03/06/24 08:59 Not Given QDAY [facility] Sennosides 1 tab 02/05/24 02:24 Senna Tablet PO 03/06/24 02:23 QDAY PRN constipation Protocol Plan Assessment: 48-year-old female with past medical history of gastritis/GERD, substance use disorder (methamphetamine and opioid), nephrolithiasis, cholelithiasis presenting with chest pain which she describes as a sharp sensation in the middle of her chest which radiated up into her jaw will be admitted for NSTEMI type I with elevated troponins. #NSTEMI type I #Elevated troponins, improved #Asymptomatic bradycardia Patient presenting with typical chest pain symptoms; central chest pain radiating to the left and up to her jaw associated with shortness of breath Patient has significant family history of coronary artery disease; mother with quadruple bypass in her 50s, grandmother with 3 stents placed Patient is an active smoker, with [id number] history Patient likely has undiagnosed hypertension; current blood pressure within normal limits Preliminary ASCVD score is showing 3.0% Risk of cardiovascular event (coronary or stroke or non-fatal [place] or stroke) in next 10 years. In the ED, EKG showed normal sinus rhythm with left axis deviation but no concerning ST changes Characteristic chest pain/pressure in addition to risk factors Troponins 1.002 => 8.070 --> ~10 -----> 8 --> 6, will not check moving forward Pt denies taking meth or any drugs, but Utox shows meth Pt is not reporting severe chest pain at this time, and has improved with medicines and anticoagulation Cholesterol numbers unremarkable A1c ~5.0 Chest CTA shows no dissection, or aneurysm Patient to get cardiac cath with Dr. Worthy on Sunday, spoke with him Patient had bradycardia, was asymptomatic, will skip metoprolol for now Echo: Normal LV size and function. Grade I diastolic dysfunction. Estimated EF 55-60% NSTEMI likely related to drug history Plan: Dr. Worthy, cardiology consulted appreciate recommendations Stopped heparin drip, cath today Trending PTT NPO at midnight Aspirin 81 mg daily Lipitor reduced to 40 mg b/c of elevation in transaminases Keep potassium greater than 4 and magnesium greater than 2 Oxygen as needed Follow up with cath results #Elevated transaminases Likely related due to Lipitor side effect Has been elevating over the past couple days, currently AST 130 and ALT 106 Plan: ? Reduce Lipitor to 40 mg #Meth use disorder Patient actively uses methamphetamine; U-Tox positive Plan: Counseled patient on drug cessation Consider hospice social worker #Low TSH DDx: Reactive vs subclinical TSH 0.38 T4 0.93 Could be reactive or subclinical Plan: -Will need to follow up outpatient #Gastritis/GERD Patient on home omeprazole 40 mg in the a.m. Plan: ?Symptomatic Protonix 40 mg per formulary #Health Maintenance Disposition: Telemetry, NSTEMI for Type I DVT prophylaxis: Heparin held for cath procedure GI prophylaxis: Protonix Diet: Will resume cardiac diet once patient gets Cath CODE STATUS: Full Patient seen and care discussed with my senior resident, Dr. Camara , and my attending physician, Dr. Salima Aly, PGY-1 Attending Provider Attestation/Addendum I have discussed and was present for the essential components of the history, physical examination, diagnosis, and treatment plan with the resident. I agree with the patient's care as documented by the resident and amended herein by me. Dimitri Borrego DO. Patient seen and evaluated this AM. In short patient is a 48-year-old female with a significant past medical history of GERD, methamphetamine and opioid abuse, renal stones, cholelithiasis who initially presented with chest pain, subsequently admitted for NSTEMI, likely type I No acute events overnight, Vital signs stable, patient afebrile overnight, CBC largely unremarkable, CMP significant for mild uptrend in aminotransferases, possibly secondary to atorvastatin. Patient did undergo left heart cath today which did not show any significant coronary lesions. Patient's chest pain and elevated troponin likely secondary to the methamphetamine use, patient can likely be discharged home tomorrow. Although this document has been carefully reviewed, there may still be some phonetic and other typographical errors. These errors are purely grammatical due to imperfections in the software program and should not be construed in any way to compromise the substance of the patient's medical care during this visit.
--- NOTE | 2024-02-08 15:51 | PC.NURSE ---
report given to RAY Enriquez, i will take pt back to room via gurbrando, pt stable, TR band off and no signs of hematoma. will give further information to RN and pt at bedside
[2024-02-08] MEDS: ONDANSETRON INJ 2 MG/ML INJ 2 ML 4 MG IV (17:32)
[2024-02-08] MEDS: ACETAMINOPHEN 325 MG TABLET 650 MG PO (23:20)
[2024-02-09] VITALS: BP 117/80; PULSE 98; PULSE 99; RESP 13; TEMP 36.3; O2SAT 96
[2024-02-09] MEDS: FAMOTIDINE 20 MG TABLET 40 MG PO (03:58)
[2024-02-09 04:00] VITALS: BP 117/65; PULSE 73; PULSE 83; RESP 15; TEMP 36.2; O2SAT 96
[2024-02-09 05:34] LABS: Basophils % (Auto) 0 % (0-2.5); Eosinophils % (Auto) 0 % (0-10); Hematocrit 46.2 % (36.0-46.0); Hemoglobin 14.5 g/dL (12.0-16.0); Immature Granulocytes % (Auto) 1 % (0-0); Immature Granulocytes Auto 0.09 Thou/mm3 (0.00-0.00); Lymphocytes # (Auto) 1.3 Thou/mm3 (1.0-4.8); Lymphocytes % (Auto) 7 % (10-50); Mean Corpuscular HGB Conc 31.4 g/dl (31.0-37.0); Mean Corpuscular Hemoglobin 27.5 pg (25.0-35.0); Mean Corpuscular Volume 88 fL (80-100); Monocytes # (Auto) 0.8 Thou/mm3 (0.0-0.8); Monocytes % (Auto) 4 % (0-12); Neutrophils # (Auto) 17.1 Thou/mm3 (1.8-7.7); Neutrophils % (Auto) 88 % (37-80); Nucleated Red Blood Cell % 0 /100 WBC (0); Platelet Count 169 Thou/mm3 (140-440); RDW Standard Deviation 41.8 fL (36.4-46.3); Red Blood Count 5.28 Miln/mm3 (4.00-5.20); White Blood Count 19.4 Thou/mm3 (3.6-11.0)
[2024-02-09 05:49] VITALS: BMI 29.0
[2024-02-09 06:19] LABS: Alanine Aminotransferase 202 U/L (10-49); Albumin, Serum 4.6 gm/dL (3.5-5.0); Albumin/Globulin Ratio 1.7 (1.2-2.2); Alkaline Phosphatase 174 U/L (46-116); Anion Gap 13 (7-16); Aspartate Amino Transferase 172 U/L (0-34); BUN/Creatinine Ratio 26 Ratio (12-20); Bilirubin,Total 0.5 mg/dL (0.3-1.2); Blood Urea Nitrogen 18 mg/dL (9-23); Calcium 9.5 mg/dL (8.3-10.6); Calcium (Corrected) 9.5 mg/dL (8.5-10.1); Carbon Dioxide 26.9 mMol/L (20.0-31.0); Chloride 98 mMol/L (98-107); Creatinine (Component) 0.7 mg/dL (0.6-1.3); Estimated Creatinine Clearance 86.9 mL/min (>60); Globulin 2.7 gm/dL (2.3-3.5); Glucose 103 mg/dL (74-106); Osmolality,Calculated 277 (275-295); Potassium 4.5 mMol/L (3.4-5.1); Sodium 138 mMol/L (136-145); Total Protein 7.3 gm/dL (5.7-8.2); eGFR > 60 See Note
--- NOTE | 2024-02-09 07:30 | XR_ITS ---
Examination: Abdomen sonogram, Limited Date and time of exam: February 09, 2024 0848 hrs. Indications: Elevated liver function tests on laboratory examination today Technique: Real-time naidu scale transabdominal sonographic images of the upper abdomen obtained. Findings: Normal gallbladder Normal common bile duct 0.3 cm Pancreatic head 2.7 cm Liver 13.4 cm fatty infiltration no focal liver lesions Normal hepatopedal portal venous flow Patent IVC Impression: Normal gallbladder Normal common bile duct Fatty liver
[2024-02-09 08:00] VITALS: BP 126/80; PULSE 74; PULSE 76; RESP 16; TEMP 35.9; O2SAT 96
[2024-02-09] MEDS: PANTOPRAZOLE 40 MG TABLET PO (08:33)
[2024-02-09 08:51] LABS: Hepatitis A Antibody IgM Non Reactive (Non React); Hepatitis B Core Antibody IgM Non Reactive (Non React); Hepatitis B Surface Antigen Non Reactive (Non React)
[2024-02-09 08:52] LABS: Hepatitis C Antibody Non Reactive (Non React)
[2024-02-09 12:00] VITALS: BP 104/79; PULSE 69; PULSE 75; RESP 14; TEMP 36.6; O2SAT 96
--- NOTE | 2024-02-09 12:11 | ESPR_ITS ---
<Statement entered by Jim Sullivan MD - 02/18/24 16:11> I reviewed above note and agree with findings and plans. I have also personally examined the patient with medicine team and went over assessment and plan with medical team including internet sourcer and resident physician. Documentation for date of: 02/09/24 Subjective Subjective Interval history: Patient seen today at the bedside found awake, alert, oriented x 3. No overnight events reported. States no active complaints at this time. Vital signs stable at this time. Labs significant for increasing LFTs but no T. bili elevation. Lipitor was discontinued as well as acetaminophen and all other hepatotoxic agents. Right upper quadrant ultrasound ordered found to be negative. Ordered repeat CMP at noon will follow-up. Cardiac cath done yesterday showed no coronary lesions. Anticipate discharge in the next 24 hours. Exam Vital Signs Temp Pulse Resp BP Pulse Ox O2 Del Method 96.6 F L 75 16 126/80 96 Room Air 02/09/24 08:00 02/09/24 12:00 02/09/24 08:00 02/09/24 08:00 02/09/24 08:00 02/09/24 08:00 Narrative Exam Physical Exam: General: AAOx3, NAD, resting comfortably HEENT: Moist mucous membranes, conjunctiva clear, EOMI, Cardiovascular: RRR, S1,S2 Pulmonary: CTA B/L, no cough, no wheezing GI: No tenderness to light or deep palpitation, no guarding, rigidity, rebound tenderness or distension Extremities: No presence of trace or pitting edema in lower extremities bilaterally, dorsalis pedis pulses +2 bilaterally Neuro: AAOx3, no focal neuro deficits, able to move all 4 extremities Objective Labs 02/09/24 04:13 02/09/24 12:46 Labs: Laboratory Results - last 24 hr 02/09/24 02/09/24 04:00 04:13 WBC 19.4 H D RBC 5.28 H Hgb 14.5 Hct 46.2 H MCV 88 MCH 27.5 MCHC 31.4 RDW Std Deviation 41.8 Plt Count 169 Neut % (Auto) 88 H Lymph % (Auto) 7 [place] % (Auto) 4 Eos % (Auto) 0 Baso % (Auto) 0 Neut # (Auto) 17.1 H Lymph # (Auto) 1.3 [place] # (Auto) 0.8 Eos # (Auto) 0.0 Baso # (Auto) 0.0 Immature Gran # (Auto) 0.09 H Absolute Nucleated RBC 0.00 Immature Gran % 1 H Nucleated RBC % 0 Sodium 138 Potassium 4.5 Chloride 98 Carbon Dioxide 26.9 Anion Gap 13 BUN 18 Creatinine 0.7 Estim Creat Clear Calc 86.9 eGFR > 60 BUN/Creatinine Ratio 26 H Glucose 103 Calculated Osmolality 277 Calcium 9.5 Corrected Calcium 9.5 Total Bilirubin 0.5 AST 172 H ALT 202 H Alkaline Phosphatase 174 H D Total Protein 7.3 Albumin 4.6 D Globulin 2.7 Albumin/Globulin Ratio 1.7 Hepatitis A IgM Ab Non Reactive Hep Bs Antigen Non Reactive Hep B Core IgM Ab Non Reactive Hepatitis C Antibody Non Reactive Quality Measures Quality Measures none Assessment & Plan Assessment Current Active Medications: Generic Name Dose Route Start Last Admin Trade Name Freq PRN Reason Stop Dose Admin Aspirin 81 mg 02/05/24 09:00 02/08/24 09:54 Aspirin Ec 81 Mg Tabec PO 03/06/24 08:59 Not Given QDAY VIDA Ondansetron HCl 4 mg 02/05/24 02:24 02/08/24 17:32 Ondansetron Inj 2 Mg/Ml Inj 2 Ml IV 03/06/24 02:23 4 mg Q6H PRN Administration NAUSEA OR VOMITING Protocol Pantoprazole Sodium 40 mg 02/05/24 09:00 02/09/24 08:33 Pantoprazole 40 Mg Tablet PO 03/06/24 08:59 40 mg QDAY VIDA Administration Sennosides 1 tab 02/05/24 02:24 Senna Tablet PO 03/06/24 02:23 QDAY PRN constipation Protocol Plan 48-year-old female with past medical history of gastritis/GERD, substance use disorder including meth and opioids, nephrolithiasis, cholelithiasis presenting with sharp, oppressive chest pain radiating up into her jaw. Admitted for NSTEMI work-up #NSTEMI type II #Troponemia- downtrended #Asymptomatic bradycardia Patient presenting with chest pain radiating to the jaw with associated shortness of breath Patient with cardiac hx in the family positive for CABGx4 in 50s (mother) and grandmother with stents placed Patient engages in risky behaviors including methamphetamine use and is an active smoker with at least 10pk years Preliminary ASCVD score is showing 3.0% Risk of cardiovascular event (coronary or stroke or non-fatal [place] or stroke) in next 10 years. In the ED, EKG showed normal sinus rhythm with left axis deviation but no concerning ST changes Characteristic chest pain/pressure in addition to risk factors Troponins 1.002-> 8.07 -> 10 -> 8, no need to continue to trend troponins Lipid panel within normal limits, as well as adequate A1c ~ 5 Chest CTA shows no dissection, or aneurysm Echo shows Normal LV size and function. Grade I diastolic dysfunction. Estimated EF 55-60% Normal RV size and function. Mild LA dilatation. Mild MR, TR. Patient had Cardiac cath on 02/07/[address] Worthy and was found with no coronary lesions, making this likely NSTEMI type 2 in the setting of methamphetamine abuse - Continue Aspirin 81mg qday - beta luci discontinued in setting of bradycardia - Dr. Worthy, cardiology consulted appreciate recommendations - Atorvastatin discontinued due to elevated transaminases - K>4, Mg>2 #Elevated transaminases-improving Likely in setting of hepatotoxicity of statin medications Has been uptrending over the past couple days, today also elevated repeat CMP in the afternoon showed downtrending LFTs - discontinued hepatotoxic medications #Substance use disorder #Methamphetamine use Patient actively uses methamphetamine; U-Tox positive Patient advised about the use of illicit drugs and effects it can have on cardiovascular health Patient believes meth did not cause her symptoms - social director for counseling - advised against use of illicit substances #Low TSH DDx: Reactive vs subclinical TSH 0.38 , T4 0.93 - Can follow up as an outpatient #Gastritis/GERD Patient takes omeprazole at home - Pantoprazole 40mg PO q day Case discussed with my senior Dr. Martin PGY-[address] Nate Her MD PGY-1 Disposition:Telemetry Fluids: None Feeding: Regular Thrombo prophylaxis: none Gastric Ulcer prophylaxis: Pantoprazole 40 mg PO daily CODE STATUS: Full code Senior resident attestation: Patient evaluated and examined at the bedside, plan of care discussed with rest of the team including my attending physician, except as noted. #NSTEMI type II: Patient has clear coronary arteries on cardiac cath, likely NSTEMI type II leading to troponin elevation in the setting of methamphetamine abuse. Discontinued Lipitor, metoprolol, continue with aspirin for now. #Methamphetamine abuse: Patient was counseled extensively regarding cardiovascular adverse effects of substance abuse disorders including methamphetamine, patient seems indifferent to discussion, and saying she does not think that has anything to do with the heart . #Transaminitis: Patient had normal LFTs on admission, but noted uptrending LFTs for the past couple days, likely due to medication adverse event, Lipitor was decreased to 40 mg yesterday, continued uptrend ALT AST, discontinued Lipitor following normal cardiac cath. #GERD: Continue Protonix Quresh PGY2
[2024-02-09 13:30] LABS: Alanine Aminotransferase 183 U/L (10-49); Albumin, Serum 4.4 gm/dL (3.5-5.0); Albumin/Globulin Ratio 1.8 (1.2-2.2); Alkaline Phosphatase 168 U/L (46-116); Anion Gap 7 (7-16); Aspartate Amino Transferase 142 U/L (0-34); BUN/Creatinine Ratio 19 Ratio (12-20); Bilirubin,Total 0.6 mg/dL (0.3-1.2); Blood Urea Nitrogen 15 mg/dL (9-23); Calcium 9.4 mg/dL (8.3-10.6); Calcium (Corrected) 9.4 mg/dL (8.5-10.1); Carbon Dioxide 28.8 mMol/L (20.0-31.0); Chloride 101 mMol/L (98-107); Creatinine (Component) 0.8 mg/dL (0.6-1.3); Estimated Creatinine Clearance 77.3 mL/min (>60); Globulin 2.5 gm/dL (2.3-3.5); Glucose 84 mg/dL (74-106); Osmolality,Calculated 273 (275-295); Potassium 4.2 mMol/L (3.4-5.1); Sodium 137 mMol/L (136-145); Total Protein 6.9 gm/dL (5.7-8.2); eGFR > 60 See Note
--- NOTE | 2024-02-09 15:40 | PC.NURSE ---
Coband dressing removed from right wrist, tolerated well. Tegaderm dressing to be removed tomorrow 02/10/2024 at 1540.
[2024-02-09 16:00] VITALS: BP 107/71; PULSE 70; PULSE 74; RESP 16; TEMP 35.9; O2SAT 96
--- NOTE | 2024-02-09 16:34 | PC.NURSE ---
Notified Dr Rojo patient is requesting to see for an update. Patient wanting to go home.
--- NOTE | 2024-02-09 16:36 | PC.NURSE ---
Dr Rojo at bedside with patient.
--- NOTE | 2024-02-09 16:39 | PC.NURSE ---
Dr Rojo notified me patient is requesting to leave AMA. AMA form completed by Dr. Rojo. Educated patient on consequences of leaving against medical advice. at bedside.
--- NOTE | 2024-02-09 16:46 | PD.RESEVENT ---
Documentation for date of: 02/09/24 Event Note Event Note: 02/09/2024 at 4:40pm: The patient has decided to sign out against medical advice (AMA) after being explained the risks & benefits of leaving before medical clearance/discharge. The patient had the opportunity to ask questions about their condition which were answered to their satisfaction; the patient is aware that they may return for further care at any time as needed. Geovanni Her MD PGY-1
--- NOTE | 2024-02-09 16:56 | PC.NURSE ---
Patient left AMA. AMA form was signed by patient and Dr Rojo. Patient was educated by Dr Rojo and this RN about consequences of leaving AMA. was at bedside. IV was removed x2, tolerated well. Tele monitor was removed. Educated Pt on removing tegaderm dressing from right arm tomorrow 02/10/2024 at 15:40.
== END 2024-02-09 16:56 | disposition left against medical advice (07) | DRG 190 ==
LOC: SERX 02-05 03:11 → SERHOLD 02-05 03:19 → S2NX 02-05 06:20
PROVIDERS: Internal Medicine; Registered Nurse General Practice; Student in an Organized Health Care Education/Training Program; Admitting Provider Internal Medicine; Emergency Provider Emergency Medicine; PCP Family Medicine; Visit Provider Student in an Organized Health Care Education/Training Program
PROC: 4A023N7 Measurement of Cardiac Sampling and Pressure, Left Heart, Percutaneous Approach (ICD-10-PCS; principal; 2024-02-08 13:00)
DX: I21.A1 Myocardial infarction type 2 (principal); K21.9 Gastro-esophageal reflux disease without esophagitis; I10 Essential (primary) hypertension; E78.5 Hyperlipidemia, unspecified; F15.10 Other stimulant abuse, uncomplicated; F11.10 Opioid abuse, uncomplicated; I08.1 Rheumatic disorders of both mitral and tricuspid valves; R00.1 Bradycardia, unspecified; F17.210 Nicotine dependence, cigarettes, uncomplicated; Z82.49 Family history of ischemic heart disease and other diseases of the circulatory system; Z53.29 Procedure and treatment not carried out because of patient's decision for other reasons
CPT/HCPCS: 36415; 71046; 71275; 76705; 80053; 80061; 80074; 80307; 81001; 83036; 83735; 83880; 84100; 84439; 84443; 84484; 85025; 85610; 85730; 93005; 93306; 99153; 99291; A4216; A4649; C1769; C1887; C1894; J0171; J0461; J0583; J1643; J1644; J2250; J2310; J2371; J2405; J3010; J3490; Q9967; A9270; J2305

== ENCOUNTER 2024-09-21 00:34 | Emergency (ER) | payer MEDICAID, SELFPAY ==
[2024-09-21 00:34] VITALS: BMI 30.2
[2024-09-21 01:12] VITALS: BP 161/101; PULSE 87; RESP 20; TEMP 36.7; O2SAT 99
--- NOTE | 2024-09-21 01:14 | EDNOTE_ITS ---
ED Abdominal Pain RME/HPI General Chief Complaint: Dental/Oral/Throat Stated complaint: ACID REFLUX Time seen by provider: 09/21/24 01:24 Arrival date/time: 09/21/24 00:34 RME / HPI RME / HPI narrative: This section includes all my notes and documentations, including HPI, PE, and ED course. Aolk Melendez MD 49 y/o female with Hx of Recreational Drug Use, GERD, and Pancreatitis presents with epigastric pain and heartburn x approximately 24 hours. Patient is inconsistent with her Protonix. No other complaints. ROS: All negative except as documented in HPI. Physical Exam: General: Alert and oriented. No acute distress when remaining still. Eyes: Conjunctivae and lids clear. ENT: No nasal congestion. Neck: Supple. Heart: RRR. Lungs: No respiratory distress. Good air movement. No rhonchi, wheezing, rales. Abdomen: Soft with epigastric tenderness. Normal bowel sounds. No distension. No rebound or guarding. Back: No CVA tenderness. Skin: Warm and dry. Neuro: Alert and oriented X 3. I reviewed all diagnostic test results: My interpretation of the EKG is: Sinus rhythm (71 bpm) with nonspecific ST-T changes. Alok Melendez MD My review of the Gall Bladder US report is: NAD. Blood tests unremarkable. At this point, diagnoses include: Stomach ulcer. Treatment here included: Tylenol with Codeine 300-30, Pepcid 40 mg, Zofran 4 mg, Protonix 40 mg. Significant improvement noted. Recommended more outpatient workup. Based on my best medical judgment, made decision no further evaluation or treatment indicated at this time. Patient understands and agrees to the discharge instructions customized and printed, see below. Discharge instructions from Dr. Melendez: ?After evaluation, your symptoms are due to stomach ulcer (see attached handout).? ?To help heal the ulcer, take Omeprazole 40 mg every morning and Famotidine 40 mg at bedtime for a month. ?Zofran for nausea/vomiting.? Clear liquid diet for 24 hours.? Then slowly advance diet as tolerated. Tylenol with codeine for severe pain. ?Avoid food and beverages that can trigger and worsen ulcers.? See attached handout. ?See a private doctor on 09/23/2024. To make sure there is no serious intra-abdominal condition, ask for help with more investigation not available here in the ER.? Such as EGD or scoping the stomach, colonoscopy or scoping the colon, and referral to see blindstitch machine operator. Ask to review all test results and official radiology reports, to make sure you receive all necessary follow-ups and monitoring. ?Seek immediate medical care with worsening or with any concerns. Alok Melendez MD Related Data Previous Rx's ?Medication ?Instructions ?Recorded ondansetron 4 mg disintegrating 4 mg PO Q8H PRN nausea and 06/15/22 tablet vomiting #15 tabs acetaminophen 300 mg-codeine 30 mg 2 tab PO Q8H PRN pa in #20 tabs 09/21/24 tablet famotidine 40 mg tablet 40 mg PO .bedtime #30 tabs 0 09/21/24 omeprazole 40 mg capsule,delayed 40 mg PO QDAY #30 cap s 09/21/24 release ondansetron 4 mg disintegrating 4 mg PO TID PRN nausea and 09/21/24 tablet vomiting 30 days #10 tabs Allergies Allergy/AdvReac Type Severity Reaction Status Date / Time No Known Allergies Allergy Verified 02/04/24 20:19 Review of Systems Review of Systems Systems Reviewed: All systems reviewed, normal except as documented Past Medical History Past Medical History CARDIAC: Positive Cardiac Disorders and Myocardial Infarction GASTROINTESTINAL: Positive Gastrointestinal Disorders, Pancreatitis and Gastroesophageal Reflux Disease GENITOURINARY: Positive Genitourinary Disorders and Kidney Stones PSYCHO/SOCIAL: Positive Recreational Drug Use Social History SMOKING STATUS: Current every day smoker ED Exam Narrative Physical exam: Refer to [facility] Course Quality Measures none Orders Category Date Time Status EKG (ED ONLY) *Do not use* NOW Care 09/21/24 01:33 Completed EKG (ED Only) Stat Exams 09/21/24 01:33 Draft US gall bladder Stat Exams 09/21/24 01:33 Taken Bilirubin,Direct Stat Lab 09/21/24 01:44 Completed CBC Stat Lab 09/21/24 01:44 Completed CMP [Comprehensive Metabolic Panel] Stat Lab 09/21/24 01:44 Completed HCG,Qualitative Serum Stat Lab 09/21/24 01:44 Completed Lipase Stat Lab 09/21/24 01:44 Completed Magnesium Stat Lab 09/21/24 01:44 Completed Troponin I Stat Lab 09/21/24 01:44 Completed ACETAMINOPHEN w/COD 300-30 [Tylenol w/Cod #3] Med 09/21/24 01:32 Discontinued 2 tab PO X1 ONE Famotidine [Pepcid] Med 09/21/24 01:32 Discontinued 40 mg PO X1 ONE Ondansetron Odt [Zofran Odt] Med 09/21/24 01:32 Discontinued 4 mg PO X1 ONE Pantoprazole [Protonix] Med 09/21/24 01:32 Discontinued 40 mg PO X1 ONE Vital Signs Vital signs: Vital Signs Temperature 98.1 F 09/21/24 01:12 Pulse Rate 87 09/21/24 01:12 Respiratory Rate 20 09/21/24 01:12 Blood Pressure 161/101 H 09/21/24 01:12 Pulse Oximetry (%) 99 09/21/24 01:12 Oxygen Delivery Method Room Air 09/21/24 01:12 Abdominal Pain MDM MDM Narrative MDM Narrative:: Scribe Attestation: I, Maureen Zamora, am scribing for and in the presence of Dr. eMlendez. Provider Notation: Although this document has been carefully reviewed, there may still be some phonetic and other typographical errors.? These errors are purely grammatical due to imperfections in the software program and should not be construed in any way to? compromise the substance of the patient's medical care during this visit. 49 y/o female with Hx of Recreational Drug Use, GERD, and Pancreatitis presents with epigastric pain and heartburn x approximately 24 hours. Patient is inconsistent with her Protonix. No other complaints. Patient data External records reviewed:: [facility] previous records (Reviewed prior ED records from 02/05/24. Patient was seen for Non-ST elevation [place] (NSTEMI)) Clinical information provided by:: patient Social determinants that could affect healthcare access:: substance use Patient has the following chronic illnesses:: Myocardial Infarction, Pancreatitis, Gastroesophageal Reflux Disease, Kidney Stones, Recreational Drug Use How is presenting disease/condition affected by chronic disease/condition?: exacerbated by Evaluation data The following diagnostics were reviewed and interpreted by me:: lab results and EKG tracing(s) (My interpretation of the EKG is: Sinus rhythm (71 bpm) with nonspecific ST-T changes. Alok Melendez MD) Lab and/or radiology exams considered but not ordered:: None Interpretation Summary: I reviewed all diagnostic test results: My review of the Gall Bladder US report is: NAD. Blood tests unremarkable. Medications / Prescriptions Medications or Prescriptions considered but not ordered:: None Medication administrations:: Medication Administration History Discontinued Medications Acetaminophen/Codeine Phosphate (Acetaminophen W/Cod 300-30 Tablet) 2 tab PO X1 ONE Stop: 09/21/24 01:33 Last Admin: 09/21/24 01:49 Dose: 2 tab Documented By: BD Famotidine (Famotidine 20 Mg Tablet) 40 mg PO X1 ONE Stop: 09/21/24 01:33 Last Admin: 09/21/24 01:49 Dose: 40 mg Documented By: BD Ondansetron HCl (Ondansetron Odt 4 Mg Tabrap) 4 mg PO X1 ONE; Protocol Stop: 09/21/24 01:33 Last Admin: 09/21/24 01:50 Dose: 4 mg Documented By: BD Pantoprazole Sodium (Pantoprazole 40 Mg Tablet) 40 mg PO X1 ONE Stop: 09/21/24 01:33 Last Admin: 09/21/24 01:50 Dose: 40 mg Documented By: BD Tylenol with Codeine 300-30, Pepcid 40 mg, Zofran 4 mg, Protonix 40 mg. Consultations Consultation(s) initiated? (list below): No Diagnosis Differential diagnosis abdominal pain: abdominal pain, pancreatitis and other (Gastritis, Peptic Ulcer) Most likely diagnosis given after review of the tests above:: Stomach ulcer Admission Indicated Admission indicated?: not indicated Explain why admission is indicated or not indicated:: With significant improvement and no condition needing emergent intervention, there was no indication for admission. Admission Request Was there a request for admission?: No Disposition Plan Disposition Plan: Discharge Discharge Attestation Discharge Attestation: The patient and all family members were given an opportunity to ask questions and understood the discharge instructions. Discharge instructions specifically effects, indications for sooner follow up or return to the emergency department, and the expected course of current diagnosis. Patient condition: Stable Discharge Plan Plan Patient Disposition: HOME (Self Care) Prescriptions/Referrals Prescriptions/Med Rec: New famotidine 40 mg tablet 40 mg PO .bedtime Qty: 30 0RF acetaminophen-codeine 300-30 mg tablet 2 tab PO Q8H MDD 6 PRN (Reason: pain) Qty: 20 0RF omeprazole 40 mg capsule,delayed release(DR/EC) 40 mg PO QDAY Qty: 30 0RF ondansetron 4 mg tablet,disintegrating 4 mg PO TID PRN (Reason: nausea and vomiting) 30 Days Qty: 10 0RF No Action ondansetron 4 mg tablet,disintegrating 4 mg PO Q8H PRN (Reason: nausea and vomiting) Qty: 15 0RF Referrals: No Primary/Family,Physician [Primary Care Provider] - In 1 week Problem List Clinical Impression: Stomach ulcer Patient/Caregiver Discharge Instructions Discharge Activity: activity as tolerated Education Materials: ED PEPTIC ULCER vs GASTRITIS Additional Instructions: Discharge instructions from Dr. Melendez: ?After evaluation, your symptoms are due to stomach ulcer (see attached handout).? ?To help heal the ulcer, take Omeprazole 40 mg every morning and Famotidine 40 mg at bedtime for a month. ?Zofran for nausea/vomiting.? Clear liquid diet for 24 hours.? Then slowly advance diet as tolerated. Tylenol with codeine for severe pain. ?Avoid food and beverages that can trigger and worsen ulcers.? See attached handout. ?See a private doctor on 09/23/2024. To make sure there is no serious intra-abdominal condition, ask for help with more investigation not available here in the ER.? Such as EGD or scoping the stomach, colonoscopy or scoping the colon, and referral to see gastroenterolog ist. Ask to review all test results and official radiology reports, to make sure you receive all necessary follow-ups and monitoring. ?Seek immediate medical care with worsening or with any concerns. Print Language: Moroccan Stand Alone Forms: Sandy Award Info., Patient Portal Info Letter
--- NOTE | 2024-09-21 01:33 | EKG_ITS ---
[facility] Test Date: 2024-09-21 Pat Name: MARCELA VEGAS Department: Room: - Gender: Female Snagger: : 1975 Requested By: Alok Hewitt Order Number: [id number] Reading MD: Alok Hewitt Measurements Intervals [place] Rate: 71 P: 39 [place]: 157 QRS: -15 QRSD: 92 T: 95 QT: 369 QTc: 402 Interpretive Statements SINUS RHYTHM NONSPECIFIC ST & T-WAVE ABNORMALITY Compared to ECG 02/05/2024 07:59:37 T-wave abnormality now present Myocardial infarct finding no longer present /store/S0/[id number]/ecg/[id number].pdf
--- NOTE | 2024-09-21 01:33 | XR_ITS ---
Examination: Abdomen sonogram, Limited Date and time of exam: September 28, 2024, 0304 hours INDICATIONS: Epigastric pain beginning 2 days ago Technique: Real-time naidu scale transabdominal sonographic images of the upper abdomen obtained. Findings: Contracted gallbladder Common bile duct 0.2 cm Pancreatic head 2.3 cm There are: 0.4 cm fatty infiltration Normal hepatopedal portal venous flow Patent IVC IMPRESSION: Repeat the gallbladder portion of this study with fasting.
[2024-09-21] MEDS: ACETAMINOPHEN w/COD 300-30 TABLET 2 TAB PO (01:49)
[2024-09-21] MEDS: FAMOTIDINE 20 MG TABLET 40 MG PO (01:49)
[2024-09-21] MEDS: ONDANSETRON ODT 4 MG TABRAP PO (01:50)
[2024-09-21] MEDS: PANTOPRAZOLE 40 MG TABLET PO (01:50)
[2024-09-21 01:55] LABS: Basophils # (Auto) 0.0 Thou/mm3 (0.0-0.2); Basophils % (Auto) 0 % (0-2.5); Eosinophils # (Auto) 0.2 Thou/mm3 (0.0-0.5); Eosinophils % (Auto) 3 % (0-10); Hematocrit 40.9 % (36.0-46.0); Hemoglobin 13.4 g/dL (12.0-16.0); Immature Granulocytes Auto 0.01 Thou/mm3 (0.00-0.00); Lymphocytes # (Auto) 2.8 Thou/mm3 (1.0-4.8); Lymphocytes % (Auto) 34 % (10-50); Mean Corpuscular HGB Conc 32.8 g/dl (31.0-37.0); Mean Corpuscular Hemoglobin 28.0 pg (25.0-35.0); Mean Corpuscular Volume 85 fL (80-100); Monocytes # (Auto) 0.6 Thou/mm3 (0.0-0.8); Monocytes % (Auto) 7 % (0-12); Neutrophils # (Auto) 4.6 Thou/mm3 (1.8-7.7); Neutrophils % (Auto) 56 % (37-80); Nucleated Red Blood Cell # 0.00 Thou/mm3 (0.00-0.00); Nucleated Red Blood Cell % 0 /100 WBC (0); Platelet Count 182 Thou/mm3 (140-440); RDW Standard Deviation 40.8 fL (36.4-46.3); Red Blood Count 4.79 Miln/mm3 (4.00-5.20); White Blood Count 8.1 Thou/mm3 (3.6-11.0)
[2024-09-21 02:15] LABS: Alanine Aminotransferase 23 U/L (10-49); Albumin, Serum 4.1 gm/dL (3.5-5.0); Albumin/Globulin Ratio 1.4 (1.2-2.2); Alkaline Phosphatase 136 U/L (46-116); Anion Gap 11 (7-16); Aspartate Amino Transferase 32 U/L (0-34); BUN/Creatinine Ratio 12 Ratio (12-20); Bilirubin,Direct < 0.1 mg/dL (0.0-0.3); Bilirubin,Total 0.3 mg/dL (0.3-1.2); Blood Urea Nitrogen 12 mg/dL (9-23); Calcium 9.6 mg/dL (8.3-10.6); Calcium (Corrected) 9.6 mg/dL (8.5-10.1); Carbon Dioxide 26.5 mMol/L (20.0-31.0); Chloride 106 mMol/L (98-107); Creatinine (Component) 1.0 mg/dL (0.6-1.3); Estimated Creatinine Clearance 61.3 mL/min (>60); Globulin 2.9 gm/dL (2.3-3.5); Glucose 96 mg/dL (74-106); Lipase 39 U/L (12-53); Magnesium 1.5 mg/dL (1.6-2.6); Osmolality,Calculated 284 (275-295); Potassium 3.5 mMol/L (3.4-5.1); Sodium 143 mMol/L (136-145); Total Protein 7.0 gm/dL (5.7-8.2); Troponin I < 0.020 ng/mL (0.0-0.045); eGFR > 60 See Note
[2024-09-21 02:36] LABS: HCG,Qualitative Serum Negative
--- NOTE | 2024-09-21 04:48 | PRELIM_ITS ---
Gallbladder ultrasound. September 21, 2024 0304 hours Clinical history: Epigastric tenderness Comparison: September 30 Findings: The visualized liver is heterogenous and increased in echogenicity without mass or ductal dilatation. The main portal vein is patent and demonstrates hepatopetal flow. The gallbladder is contracted. No gallbladder calculus, wall thickening or pericholecystic fluid is identified. Sonographic Gould sign is negative as per the technologist's note. The common duct is normal in caliber at 2 mm. No free fluid is demonstrated on the submitted images. The pancreas is unremarkable to the visualised extent. The inferior vena cava is patent. Impression: Limited evaluation due to contracted gallbladder (postprandial). No evidence of cholelithiasis , acute cholecystitis or biliary obstruction Heterogenous fatty liver. Report Electronically Signed By: Aime Goncalves 09/21/2024 4:47:41 AM [EST]
== END 2024-09-21 03:43 | disposition home or self-care (01) ==
PROVIDERS: Emergency Provider Emergency Medicine
DX: K25.9 Gastric ulcer, unspecified as acute or chronic, without hemorrhage or perforation (principal); R94.31 Abnormal electrocardiogram [ECG] [EKG]; K76.0 Fatty (change of) liver, not elsewhere classified; K82.0 Obstruction of gallbladder
CPT/HCPCS: 36415; 76705; 80053; 82248; 83690; 83735; 84484; 84703; 85025; 93005; 99283; Q0162; A9270